=== PATIENT | female | born 1955 | race African-American/Black ===

== ENCOUNTER 2018-09-28 16:16 | Inpatient (IN) ==
--- NOTE | 2018-09-28 16:54 | Emergency Department Note ---
Disposition Clinical Impression: Weakness Fall Qualifiers: Encounter type: initial encounter Qualified Code(s): W19.XXXA - Unspecified fall, initial encounter CVA (cerebral vascular accident) Qualifiers: CVA mechanism: unspecified Qualified Code(s): I63.9 - Cerebral infarction, unspecified Disposition: Admitted As Inpatient Condition: Fair Referrals: NONE,PCP [Primary Care Provider] - Forms: ED Satisfaction Letter General Adult HPI - General Chief complaint: ED Headache Stated complaint: dizzy, headache Time Seen by Provider: 09/28/18 16:34 Nursing Notes Reviewed: Yes Vital Signs Reviewed: Yes - Related Data Allergies Allergy/AdvReac Type Severity Reaction Status Date / Time adhesive tape Allergy Rash Verified 09/28/18 16:57 ciprofloxacin [From Cipro] Allergy Hives Verified 09/28/18 16:57 levofloxacin [From Levaquin] Allergy Hives Verified 09/28/18 16:57 dial soap Allergy Rash Uncoded 09/28/18 16:57 IVP dye Allergy See Uncoded 09/28/18 16:57 Comments Course Vital Signs Temperature 99.3 F 09/28/18 16:28 Pulse Rate 107 09/28/18 16:28 Respiratory Rate 18 09/28/18 16:28 Blood Pressure 145/85 09/28/18 16:28 O2 Sat by Pulse Oximetry 98 09/28/18 16:28 Temperature 99.3 F 09/28/18 16:56 Pulse Rate 105 09/28/18 18:28 Respiratory Rate 16 09/28/18 18:28 Blood Pressure 111/67 09/28/18 18:28 O2 Sat by Pulse Oximetry 98 09/28/18 18:28 Oxygen Delivery Oxygen Delivery Room Air Medical Decision Making - [facility] Narrative Medical decision making narrative: 1821 hrs.: Waiting a patient's CAT scan. She has an elevated troponin. Denies any chest pain. She also has renal insufficiency with no old labs to compare to some uncertain if that is new or old. Once we get her CT is back and imaging will reassess her and most likely admit. Cervical Spine CT 09/28/18 16:43 IMPRESSION: Very limited examination, especially within the mid to lower cervical spine, with the examination is nearly nondiagnostic. No obvious acute fracture or traumatic malalignment is detected. D/ / Ravin Kruger MD / Ravin Kruger MD Interpreting Provider: Ravin Kruger MD Chest X-Ray 09/28/18 16:43 IMPRESSION: No acute process. D/ / Jace Yo MD / Jace Yo MD Interpreting Provider: Jace Yo MD Head CT 09/28/18 16:43 IMPRESSION: No acute intracranial abnormality. D/ / Jace Yo MD / Jace Yo MD Interpreting Provider: Jace Yo MD 1900 hrs.: Patient's CTs are back no acute process. Were going to go ahead and bring her into the hospital. With status post fall with left-sided weakness and diplopia. And then discuss her with hospitalist. She is in agreement with plan - Lab Data Result diagrams: 09/28/18 17:08 09/28/18 17:08 Lab Results 09/28/18 09/28/18 09/28/18 Range/Units 17:08 17:08 18:06 WBC 7.5 (4.3-11.1) K/mcL RBC 4.50 (3.82-4.97) M/mcL Hgb 12.6 (11.5-15.4) g/dL Hct 42.2 (35.3-44.9) % MCV 93.8 (83.0-100.0) fL MCH 28.0 (28.0-33.3) pg MCHC 29.9 L (31.6-35.5) g/dL RDW 14.6 H (11.5-14.5) % Plt Count 284 (140-400) K/mcL MPV 10.3 (9.4-12.4) fL Immature Gran % 0.4 (0-4) % Seg Neutrophils % 53.8 % Lymphocytes % 29.0 % Monocytes % 12.3 % Eosinophils % 4.0 % Basophils % 0.5 % Neutrophils # 4.0 (1.6-8.9) K/mcL Lymphocytes # 2.2 (0.6-4.6) K/mcL Monocytes # 0.9 (0.0-1.3) K/mcL Eosinophils # 0.3 (0.0-0.6) K/mcL Basophils # 0.0 (0.0-0.2) K/mcL Immature Plt Fraction 3.8 (1.1-6.1) % Sodium 137 (136-145) mEq/L Potassium 4.3 (3.5-5.1) mEq/L Chloride 100 (98-107) mEq/L Carbon Dioxide 31 H (23-29) mEq/L BUN 29 H (8-23) mg/dL Creatinine 1.37 H (0.60-1.20) mg/dL Est GFR ( Amer) 47 L (> 60) Est GFR (Non-Af Amer) 39 L (> 60) BUN/Creatinine Ratio 21 (6-26) Glucose 99 (70-105) mg/dL Calculated Osmolality 290 (280-300) Calcium 8.9 (8.6-10.3) mg/dL Total Bilirubin 0.5 (0.3-1.0) mg/dL AST 48 H (13-39) Units/L ALT 44 (7-52) Units/L Alkaline Phosphatase 119 H (34-104) Units/L Troponin I 0.06 H* (< 0.04) ng/mL Serum Total Protein 7.5 (6.4-8.9) g/dL Albumin 3.9 (3.5-5.7) g/dL Globulin 3.6 H (2.4-3.5) g/dL Albumin/Globulin Ratio 1.1 (1.1-2.2) Urine Color Yellow (Yellow) Urine Clarity Cloudy A (Clear) Urine pH 5.0 (5.0-8.0) pH Units Ur Specific [place] 1.017 (1.010-1.025) Urine Protein Negative (Neg-Trace) mg/dL Urine Glucose (UA) Normal (Normal) mg/dL Urine Ketones Negative (Negative) mg/dL Urine Blood Negative (Negative) Urine Nitrite Negative (Negative) Urine Bilirubin Small H (Negative) Urine Urobilinogen Normal (Normal) mg/dL Ur Leukocyte Esterase Small H (Negative) Urine Microscopic RBC 0-3 (0-3) per hpf Urine Microscopic WBC 5-15 H (0-3) per hpf Ur Squamous Epith Cells Many H (None-Few) per lpf Ur Transition Epith Cell Few (None-Few) per hpf Urine Bacteria None Seen (None-Few) per hpf Ur Culture Indicated? NO. A (NO) Attestation Statement - Attestation Attestation: This documentation is done with the assistance of Dragon dictation. Despite efforts made to ensure accuracy, there may be inaccuracies in railroad track inspector or spelling and typographical errors. I examined this patient and my medical decision-making was reviewed with the Resident Physician. I agree with the documented findings, disposition and treatment plan as described except to the extent set forth below. Patient seen and evaluated by Dr. mcmahan her and myself, I agree with her evaluation management plan, supervised the care the patient's stay. Patient presents today after Sunday she was walking up some stairs fell backwards and struck her head did not lose consciousness medics were there but then she did not want transported. She slept the last 3 days and today comes in with tingling in her face more right-sided droop and she normally has she says she said that since she was a kid double vision on the right eye and also weakness on the left upper extremity. She is contrast she says she has not had a stroke before she does walk with a cane. Were going to go ahead and get labs on her CT her. He wanted a CTA but she says she is allergic to IV dye. And then we will reassess. Most likely she will need admission.
[2018-09-28] MEDS: 0.9 % Sodium Chloride 1,000 ML IVC SCH (17:15)
[2018-09-28 17:25] LABS: Basophils % 0.5 %; Eosinophils # 0.3 K/mcL (0.0-0.6); Hematocrit 42.2 % (35.3-44.9); Hemoglobin 12.6 g/dL (11.5-15.4); Immature Granulocytes % 0.4 % (0-4); Immature Platelets 3.8 % (1.1-6.1); Lymphocytes # 2.2 K/mcL (0.6-4.6); Mean Corpuscular HGB Conc 29.9 g/dL (31.6-35.5); Mean Corpuscular Volume 93.8 fL (83.0-100.0); Mean Platelet Volume 10.3 fL (9.4-12.4); Monocytes # 0.9 K/mcL (0.0-1.3); Monocytes % 12.3 %; Platelet Count 284 K/mcL (140-400); Red Cell Distribution Width 14.6 % (11.5-14.5); Segmented Neutrophils % 53.8 %
--- NOTE | 2018-09-28 17:36 | Emergency Department Note ---
Disposition Clinical Impression: Weakness Fall Qualifiers: Encounter type: initial encounter Qualified Code(s): W19.XXXA - Unspecified fall, initial encounter CVA (cerebral vascular accident) Qualifiers: CVA mechanism: unspecified Qualified Code(s): I63.9 - Cerebral infarction, unspecified Disposition: Admitted As Inpatient Condition: Good Referrals: NONE,PCP [Primary Care Provider] - Forms: ED Satisfaction Letter General Adult HPI - General Chief complaint: ED Headache Stated complaint: dizzy, headache Time Seen by Provider: 09/28/18 16:34 Source: EMS Limitations: no limitations Nursing Notes Reviewed: Yes Vital Signs Reviewed: Yes - History of Present Illness HPI Narrative: 63-year-old female who presents the emergency department with complaints of left-sided weakness, predominantly of her left arm. She states this began yesterday after a fall. She states she fell and slipped backwards hitting her head but denies losing consciousness. Since that time she has slept significantly but has had numbness and weakness of her left upper extremity. She states she keeps dropping objects without trying. Otherwise notes that she has bilateral double vision, predominantly of the right eye. She complains of a headache. She otherwise denies any chest pain, shortness of breath, nausea, vomiting, diarrhea, abdominal pain, dysuria, hematuria. Pain Scale: 7 - Related Data Allergies Allergy/AdvReac Type Severity Reaction Status Date / Time adhesive tape Allergy Rash Verified 09/28/18 16:57 ciprofloxacin [From Cipro] Allergy Hives Verified 09/28/18 16:57 levofloxacin [From Levaquin] Allergy Hives Verified 09/28/18 16:57 dial soap Allergy Rash Uncoded 09/28/18 16:57 IVP dye Allergy See Uncoded 09/28/18 16:57 Comments Constitutional: Reports: weakness. Denies: fever, chills, weight change Eyes: Denies: eye pain, eye discharge Cardiovascular: Denies: chest pain, palpitations, dyspnea on exertion Respiratory: Denies: cough, dyspnea, wheezes, hemoptysis Gastrointestinal: Denies: abdominal pain, nausea, vomiting, diarrhea, constipation, hematemesis Genitourinary: Denies: urgency, dysuria Musculoskeletal: Denies: back pain, neck pain Integumentary: Denies: rash Neurological: Reports: headache, weakness. Denies: numbness, paresthesias, confusion Psychiatric: Denies: anxiety, depression Endocrine: Denies: fatigue Past Medical History - Past Medical History Medical history: Reports: hypertension Psychiatric history: Reports: no psych history - Social History Smoking Status: Current every day smoker Smokeless Tobacco Status: No Alcohol use: Reports: rarely Drug use: Reports: none Physical Exam - General Limitations: no limitations General appearance: alert, in no apparent distress - Head Head exam: atraumatic, normocephalic, other (Facial droop of the right which the) - Eye Eye exam: Present: normal appearance, PERRL, EOMI - ENT ENT exam: normal exam, normal oropharynx, mucous membranes moist - Neck Neck exam: Present: normal inspection, full ROM, trachea midline - Chest Chest inspection: Present: normal inspection, symmetric chest wall rise. Absent: tenderness - Respiratory Respiratory exam: Present: normal lung sounds bilaterally. Absent: respiratory distress, wheezes, stridor - Cardiovascular Cardiovascular exam: Present: normal rhythm, tachycardia, normal heart sounds - Abdominal Exam Abdominal exam: Present: soft, Non-Tender, normal bowel sounds. Absent: distention, guarding, rebound, rigidity - Extremities Exam Extremities exam: Present: normal inspection. Absent: pedal edema - Expanded Lower Extremity Exam Neurovascular/Tendon exam: Present: normal capillary refill - Back Exam Back exam: Present: normal inspection - Neurological Exam Neurological exam: Present: alert, oriented X3, CN II-XII intact - Expanded Neurological Exam Patient oriented to: Present: person, place, time Speech: Present: fluid speech Cranial nerves: EOM function (II, III, IV, ): Normal, facial sensation (V): Abnormal Left, Abnormal Right, facial palsy (VII): Normal, gag reflex (IX): Normal, spinal accessory function (XI): Normal, tongue deviation (XII): Normal Cerebellar function: finger to nose: Normal, heel to knutson: Normal Motor strength - LUE: 4/5 Motor strength - RUE: 5/5 Motor strength - LLE: 5/5 Motor strength - RLE: 5/5 Sensory exam upper extremity: light touch: Abnormal Left, Abnormal Right Sensory exam lower extremity: light touch: Abnormal Left, Abnormal Right Coma Scale Eye Opening: Spontaneous Coma Scale Motor Response: Obeys Commands Coma Scale Verbal Response: Oriented Coma Scale Total: 15 - Psychiatric Psychiatric exam: Present: normal affect, normal mood - Skin Skin exam: Present: warm, dry, intact Course Vital Signs Temperature 99.3 F 09/28/18 16:28 Pulse Rate 107 09/28/18 16:28 Respiratory Rate 18 09/28/18 16:28 Blood Pressure 145/85 09/28/18 16:28 O2 Sat by Pulse Oximetry 98 09/28/18 16:28 Temperature 99.3 F 09/28/18 16:56 Pulse Rate 105 09/28/18 18:28 Respiratory Rate 16 09/28/18 18:28 Blood Pressure 111/67 09/28/18 18:28 O2 Sat by Pulse Oximetry 98 09/28/18 18:28 Oxygen Delivery Oxygen Delivery Room Air Medical Decision Making - [facility]DM Narrative Medical decision making narrative: 63-year-old female presenting status post fall now with diplopia, headache and weakness of the left upper extremity. Given her symptoms obtained CBC, BMP, troponin, EKG, chest x-ray and CT head. Do believe this patient would benefit from CT angiogram head and neck but given her severe reaction to IV dye we are unable to obtain this. Troponin is elevated at 0.06 without EKG changes. Chest x-ray, CT head and neck were unremarkable. Discussed the findings with the patient and she agrees with plan for admission. Discussed the case with on-call hospitalist, Dr. Eaton who agrees with plan for admission. Patient agrees with and understands course of treatment plan including plan for admission. All questions answered. - Medical Records Medical records reviewed: Yes I reviewed the patient's medical records. - Lab Data Lab results reviewed: Yes I reviewed the patient's lab results. Result diagrams: 09/28/18 17:08 09/28/18 17:08 Lab Results 09/28/18 09/28/18 09/28/18 Range/Units 17:08 17:08 18:06 WBC 7.5 (4.3-11.1) K/mcL RBC 4.50 (3.82-4.97) M/mcL Hgb 12.6 (11.5-15.4) g/dL Hct 42.2 (35.3-44.9) % MCV 93.8 (83.0-100.0) fL MCH 28.0 (28.0-33.3) pg MCHC 29.9 L (31.6-35.5) g/dL RDW 14.6 H (11.5-14.5) % Plt Count 284 (140-400) K/mcL MPV 10.3 (9.4-12.4) fL Immature Gran % 0.4 (0-4) % Seg Neutrophils % 53.8 % Lymphocytes % 29.0 % Monocytes % 12.3 % Eosinophils % 4.0 % Basophils % 0.5 % Neutrophils # 4.0 (1.6-8.9) K/mcL Lymphocytes # 2.2 (0.6-4.6) K/mcL Monocytes # 0.9 (0.0-1.3) K/mcL Eosinophils # 0.3 (0.0-0.6) K/mcL Basophils # 0.0 (0.0-0.2) K/mcL Immature Plt Fraction 3.8 (1.1-6.1) % Sodium 137 (136-145) mEq/L Potassium 4.3 (3.5-5.1) mEq/L Chloride 100 (98-107) mEq/L Carbon Dioxide 31 H (23-29) mEq/L BUN 29 H (8-23) mg/dL Creatinine 1.37 H (0.60-1.20) mg/dL Est GFR ( Amer) 47 L (> 60) Est GFR (Non-Af Amer) 39 L (> 60) BUN/Creatinine Ratio 21 (6-26) Glucose 99 (70-105) mg/dL Calculated Osmolality 290 (280-300) Calcium 8.9 (8.6-10.3) mg/dL Total Bilirubin 0.5 (0.3-1.0) mg/dL AST 48 H (13-39) Units/L ALT 44 (7-52) Units/L Alkaline Phosphatase 119 H (34-104) Units/L Troponin I 0.06 H* (< 0.04) ng/mL Serum Total Protein 7.5 (6.4-8.9) g/dL Albumin 3.9 (3.5-5.7) g/dL Globulin 3.6 H (2.4-3.5) g/dL Albumin/Globulin Ratio 1.1 (1.1-2.2) Urine Color Yellow (Yellow) Urine Clarity Cloudy A (Clear) Urine pH 5.0 (5.0-8.0) pH Units Ur Specific [place] 1.017 (1.010-1.025) Urine Protein Negative (Neg-Trace) mg/dL Urine Glucose (UA) Normal (Normal) mg/dL Urine Ketones Negative (Negative) mg/dL Urine Blood Negative (Negative) Urine Nitrite Negative (Negative) Urine Bilirubin Small H (Negative) Urine Urobilinogen Normal (Normal) mg/dL Ur Leukocyte Esterase Small H (Negative) Urine Microscopic RBC 0-3 (0-3) per hpf Urine Microscopic WBC 5-15 H (0-3) per hpf Ur Squamous Epith Cells Many H (None-Few) per lpf Ur Transition Epith Cell Few (None-Few) per hpf Urine Bacteria None Seen (None-Few) per hpf Ur Culture Indicated? NO. A (NO) - Radiology Data Radiology results reviewed: Yes I reviewed the patient's radiology results. Cervical Spine CT 09/28/18 16:43 IMPRESSION: Very limited examination, especially within the mid to lower cervical spine, with the examination is nearly nondiagnostic. No obvious acute fracture or traumatic malalignment is detected. D/ / Ravin Kruger MD / Ravin Kruger MD Interpreting Provider: Ravin Kruger MD Chest X-Ray 09/28/18 16:43 IMPRESSION: No acute process. D/ / Jace Yo MD / Jace Yo MD Interpreting Provider: Jace Yo MD Head CT 09/28/18 16:43 IMPRESSION: No acute intracranial abnormality. D/ / Jace Yo MD / Jace Yo MD Interpreting Provider: Jace Yo MD - EKG Data EKG #1 EKG attestation: Yes I reviewed and interpreted this EKG. EKG results narrative: Sinus tachycardia rate of 104. LA 135, QRS 78, QTC 333, QTC 438. Normal axis. Inverted T waves in V1 and V3 and V4. No evidence of ST elevations. No prior for comparison.
[2018-09-28 17:49] LABS: Albumin 3.9 g/dL (3.5-5.7); Albumin/Globulin Ratio 1.1 (1.1-2.2); Bilirubin,Total 0.5 mg/dL (0.3-1.0); Calcium 8.9 mg/dL (8.6-10.3); Globulin 3.6 g/dL (2.4-3.5); Potassium 4.3 mEq/L (3.5-5.1); Total Protein 7.5 g/dL (6.4-8.9)
[2018-09-28 18:17] LABS: Bilirubin,Urine Small (Negative); Blood,Urine Negative (Negative); Clarity,Urine Cloudy (Clear); Color,Urine Yellow (Yellow); Glucose,Urine (UA) Normal (Normal); Ketones,Urine Negative (Negative); Leukocyte Esterase,Urine Small (Negative); Nitrite,Urine Negative (Negative); Protein,Urine Negative (Neg-Trace); Specific Gravity,Urine 1.017 (1.010-1.025); Urobilinogen,Urine Normal (Normal)
[2018-09-28 18:17] LABS: Troponin I 0.06 ng/mL (< 0.04)
[2018-09-28 18:19] LABS: Bacteria,Urine None Seen per hpf (None-Few); RBC,Urine 0-3 per hpf (0-3); Squamous Epithelial Cell,Urine Many per lpf (None-Few)
[2018-09-28 18:34] LABS: Transitional Epi Cells,Urine Few per hpf (None-Few)
[2018-09-28] MEDS ORDERED: Aspirin 81 MG TAB.CHEW PO STA (19:17)
--- NOTE | 2018-09-28 19:57 | Internal Med History&Physical ---
Date of Encounter: 09/28/18 Time of Encounter: 19:51 Internal Medicine - H&P: HPI Chief complaint: Left sided weakness History of present illness: Ms. Shen is a 63 year old female with a past medical history of hypertension, anxiety and smoking history who presents with left upper extremity weakness. Patient states she noted left upper extremity weakness around 4 AM Sunday morning when she began dropping things out of her left hand. Patient also has numbness and tingling in her left hand which is not acute. 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 Patient has had previous surgery on her right shoulder. She also notes feeling unsteady on her feet and drifting to one side. Patient had a mechanical fall 1 week prior at which time she fell forward while she was coming down some steps and struck her head on the pavement. Patient states she did not lose consciousness prior to the fall but does think that she was briefly unconscious after. She is not currently on any blood thinners. Patient reports a headache which began last Sunday and has been feeling unwell. She reportedly slept from Sunday until Sunday; she reports that her aid and daughter would occasionally wake her up but she will go back to sleep. Patient came in today because to be evaluated for her headache and left arm weakness. She states her headache started Sunday but is been on and off since then. Headache seems to have gotten progressively worse today. She has difficulty describing the pain but states that it starts in the back of her head and radiates upwards towards her scalp. She feels as if her head is going to pop off. Pain is throbbing. No associated pain along the temples. Seems to be aggravated by light and she did have one episode of nausea and vomiting. Patien t denies any previous history of migraine. Also reports double vision predominantly in the right eye. Denies any recent illness, shortness of breath, vomiting, diarrhea or abdominal pain. Labs relatively unremarkable aside from a mildly elevated creatinine and troponin of 0.06. Patient however denies any chest pain. CT scan of the cervical spine was limited but showed no obvious fracture. CT scan of the head was unremarkable. Patient was given loading dose of aspirin. Past Med Surg Social Fam HX - Past Medical History Medical history: hypertension Psychiatric history: no psych history - Past Surgical History Additional surgical history: gastric bypass - Social History Smoking Status: Current every day smoker Smokeless Tobacco Status: No Alcohol use: rarely Drug use: none Internal Medicine - H&P: Meds ALPRAZolam [Xanax 0.5 MG Tablet] 0.5 mg PO BID PRN 09/29/18 [History] Acetaminophen [Tylenol] 1,000 mg PO Q6HR 09/29/18 [History] Albuterol Sulfate [Ventolin Hfa] 2 puff IH Q6H PRN 09/29/18 [History] Amitriptyline [Elavil] 50 mg PO HS 09/29/18 [History] Budesonide/Formoterol 160/4.5 [Symbicort 160/4.5] 2 puff IH BIDR 09/29/18 [History] Duloxetine HCl [Cymbalta] 60 mg PO DAILY 09/29/18 [History] Gabapentin [Neurontin] 800 mg PO TID 09/29/18 [History] Ibuprofen [Ibu] 800 mg PO TID PRN 09/29/18 [History] Loperamide [Imodium] 4 mg PO AD PRN 09/29/18 [History] Ondansetron HCl [Zofran] 4 mg PO TID PRN 09/29/18 [History] Tizanidine HCl 4 mg PO QID PRN 09/29/18 [History] Allergy/AdvReac Type Severity Reaction Status Date / Time adhesive tape Allergy Rash Verified 09/28/18 16:57 ciprofloxacin [From Cipro] Allergy Hives Verified 09/28/18 16:57 levofloxacin [From Levaquin] Allergy Hives Verified 09/28/18 16:57 dial soap Allergy Rash Uncoded 09/28/18 16:57 IVP dye Allergy See Uncoded 09/28/18 16:57 Comments All Systems PM: A 10-system review of systems was performed and is negative for pertinent findings except as documented above in the HPI. - Constitutional Constitutional: no chills, no fever(s), no night sweats - EENT Eyes: no change in vision, no discharge, no pain, no photophobia Ears: no ear discharge, no ear pain, no tinnitus Nose, mouth and throat: no dysphagia, no nasal discharge, no neck pain, no sore throat - Cardiovascular Cardiovascular ROS IM: no chest pain, no diaphoresis, no dyspnea, no lightheadedness, no palpitations, no syncope - Respiratory Respiratory: no cough, no dyspnea, no wheezing, no excessive phlegm production - Gastrointestinal Gastrointestinal: no abdominal pain, no diarrhea, no hematemesis, no hematochezia, no melena, no nausea, no vomiting - Genitourinary Genitourinary: no change in urinary stream, no dysuria, no flank pain, no hematuria - Musculoskeletal Musculoskeletal ROS IM: no numbness, no tingling - Integumentary Integumentary IM: no rash, no unusual bruising - Neurological Neurological ROS: no confusion, no convulsions, no focal weakness, no numbness, no tingling, no tremor(s) - Hematologic/Lymphatic Hematologic/Lymphatic: no easy bruising - Constitutional Vitals: Temp Pulse Resp BP Pulse Ox 99.3 F 105 16 111/67 98 09/28/18 16:56 09/28/18 18:28 09/28/18 18:28 09/28/18 18:28 09/28/18 18:28 Exam: General: Alert and oriented 3 lying in bed in no acute distress Skin:Normal color, no rash, no lesions. HEENT:EOM, pupils equal, round and reactive. Cardiovascular:Normal S1 & S2, no rubs, murmurs or gallops. No JVD. Pulse regular. Lungs:Normal breath sounds, no wheezes or crackles. Abdomen:Soft, non-tender, no rigidity. Extremities:No deformity, no edema or tenderness, no joint swelling or clubbing. Pulses palpable Neurological:Normal cognition and motor skills. Cranial nerves II through XII intact. No evidence of pronator drift. No evidence of dysmetria. Upper extremity muscle strength 5 out of 5 bilaterally. Lower extremity: 4 out of 5 on the left, 5 out of 5 on the right. Sensation diminished on the left upper extremity compared to the right. Pulses:Carotid and radial pulses normal +2. Rest of the physical exam is non contributory Internal Med - H&P Results - Labs CBC & Chem 7: 09/28/18 17:08 09/29/18 05:08 Labs: Short CBC 09/28/18 Range/Units 17:08 WBC 7.5 (4.3-11.1) K/mcL Hgb 12.6 (11.5-15.4) g/dL Hct 42.2 (35.3-44.9) % Plt Count 284 (140-400) K/mcL Neutrophils # 4.0 (1.6-8.9) K/mcL BMP 09/28/18 17:08 Sodium 137 Potassium 4.3 Chloride 100 Carbon Dioxide 31 H BUN 29 H Creatinine 1.37 H Glucose 99 Calcium 8.9 Cardiac Enzymes 09/28/18 Range/Units 17:08 Troponin I 0.06 H* (< 0.04) ng/mL Liver Function 09/28/18 Range/Units 17:08 Total Bilirubin 0.5 (0.3-1.0) mg/dL AST 48 H (13-39) Units/L ALT 44 (7-52) Units/L Alkaline Phosphatase 119 H (34-104) Units/L Albumin 3.9 (3.5-5.7) g/dL Urine 09/28/18 Range/Units 18:06 Urine Color Yellow (Yellow) Urine Clarity Cloudy A (Clear) Urine pH 5.0 (5.0-8.0) pH Units Ur Specific [place] 1.017 (1.010-1.025) Urine Protein Negative (Neg-Trace) mg/dL Urine Glucose (UA) Normal (Normal) mg/dL - Impressions ITS Impressions Cervical Spine CT 09/28/18 16:43 IMPRESSION: Very limited examination, especially within the mid to lower cervical spine, with the examination is nearly nondiagnostic. No obvious acute fracture or traumatic malalignment is detected. D/ / Ravin Kruger MD / Ravin Kruger MD Interpreting Provider: Ravin Kruger MD Chest X-Ray 09/28/18 16:43 IMPRESSION: No acute process. D/ / Jace Yo MD / Jace Yo MD Interpreting Provider: Jace Yo MD Head CT 09/28/18 16:43 IMPRESSION: No acute intracranial abnormality. D/ / Jace Yo MD / Jace Yo MD Interpreting Provider: Jace Yo MD - Assessment and plan (1) Weakness Current Visit: Yes Status: Acute Assessment and plan: Patient reports left upper extremity weakness and dropping items from her hand which began 4 AM Sunday morning. She has a history of arthritis in the left shoulder with consultation with orthopedics for possible surgical intervention in the future. Patient reports numbness and tingling which has been ongoing off and on. Patient did have recent chemical fall with reported head trauma and loss of consciousness that was unwitnessed. Muscle strength on my assessment appears to be 5 out of 5 bilaterally. Sensation is diminished on the left upper extremity compared to the right. No other focal findings and patient appears to be neurologically intact otherwise. Low suspicion for CVA/TIA; suspect peripheral neuropathy such as carpal tunnel given patient's obesity and arthritis. Though patient does have risk factors including morbid obesity, hypertension and smoking history in addition to recent head trauma. We will admit for workup of TIA/CVA. Patient received loading dose of aspirin in the ED. -Neurochecks -Allow for any permissive hypertension -Echocardiogram/bilateral carotid duplex -MRI without contrast in the morning -Neurology consult (2) Headache Current Visit: Yes Status: Acute Assessment and plan: Patient reports throbbing headache originating in the back of the head and radi ating up to the scalp associated with nausea and photophobia. Suspect migraine. CT scan of the head was unremarkable. No temporal tenderness -By mouth pain control -We will obtain MRI of the head in the morning Qualifiers: Headache type: unspecified Headache chronicity pattern: chronic headache Intractability: not intractable Qualified Code(s): R51 - Headache (3) Diplopia Current Visit: Yes Status: Acute (4) Unsteady gait Current Visit: Yes Status: Acute Assessment and plan: Patient reports unsteady gait Sunday morning at 4 AM. Patient had been in bed almost 72 hours straight prior. No evidence of focal weakness on examination. Has history of arthritis. Suspect acute deconditioning. -PT/OT (5) Elevated troponin Current Visit: Yes Status: Acute Assessment and plan: Mildly elevated troponin of 0.06 on arrival. Patient denies any chest pain. EKG was unremarkable for any ischemic changes. Patient reports heart catheter in the past that was normal. Likely demand ischemia in the setting of recent events. -Trend troponin -Consider cardiology consult (6) Hypertension Current Visit: Yes Status: Acute Assessment and plan: Blood pressure stable. We will allow for permissive hypertension for now. Qualifiers: Hypertension type: essential hypertension Qualified Code(s): I10 - Essential (primary) hypertension (7) Smoking history Current Visit: Yes Status: Acute (8) DVT prophylaxis Current Visit: Yes Status: Acute Assessment and plan: Subcutaneous heparin - Time Spent With Patient Total time spent is greater than 50% in coordination of care (as documented) at patient's floor/unit and/or counseling patient:
[2018-09-28] MEDS ORDERED: Naloxone 0.4 MG/ML INJ IVP PRN (19:59)
[2018-09-28 20:38] LABS: Amphetamine Screen,Urine Negative ng/mL (Cutoff=1000); Barbiturate Screen,Urine Negative ng/mL (Cutoff=200); Benzodiazepines Screen,Urine Negative ng/mL (Cutoff=200); Cannabinoid Screen,Urine Negative ng/mL (Cutoff = 50); Cocaine Screen,Urine Negative ng/mL (Cutoff= 300); Opiate Screen,Urine Negative ng/mL (Cutoff=300); Phencyclidine Screen,Urine Negative ng/mL (Cutoff=25)
[2018-09-28] MEDS: *HR* Heparin 5,000 UNIT/ML VIAL SQ SCH (22:12)
[2018-09-29] MEDS: Acetaminophen/Aspirin/Caffeine TABLET PO PRN ×2 (00:40→13:06)
[2018-09-29] MEDS ORDERED: OXYCODONE Oral CONC 10 MG/0.5 ML ORAL.SYG SL ONE ×3 (02:28→08:24)
[2018-09-29] MEDS: 0.9 % Sodium Chloride 1,000 ML IVC SCH (05:19)
[2018-09-29] MEDS: *HR* Heparin 5,000 UNIT/ML VIAL SQ SCH ×3 (05:20→21:05)
[2018-09-29 05:49] LABS: Prothrombin Time 11.6 Seconds (9.4-12.1)
[2018-09-29 06:06] LABS: Alanine Aminotransferase 40 Units/L (7-52); Albumin 3.6 g/dL (3.5-5.7); Albumin/Globulin Ratio 1.1 (1.1-2.2); Alkaline Phosphatase 114 Units/L (34-104); Aspartate Amino Transferase 47 Units/L (13-39); BUN/Creatinine Ratio 28 (6-26); Bilirubin,Total 0.6 mg/dL (0.3-1.0); Blood Urea Nitrogen 23 mg/dL (8-23); Calcium 8.5 mg/dL (8.6-10.3); Carbon Dioxide 29 mEq/L (23-29); Chloride 105 mEq/L (98-107); Chol/HDL Ratio 2.7 (0-4.9); Cholesterol 127 mg/dL (< 200); Globulin 3.4 g/dL (2.4-3.5); Glucose 108 mg/dL (70-105); HDL Cholesterol 47 mg/dL (40-59); LDL Cholesterol,Calculated 66 mg/dL (0-99); Osmolality,Calculated 294 (280-300); Potassium 4.3 mEq/L (3.5-5.1); Sodium 140 mEq/L (136-145); Triglycerides 69 mg/dL (< 150); eGFR For Non-African Americans > 60 (> 60)
[2018-09-29 06:07] LABS: Estimated Average Glucose 108 mg/dl; Hemoglobin A1C 5.4 %
[2018-09-29] MEDS ORDERED: Perflutren Lipid Microsphere 1.3 ML in 0.9 % Sodium Chloride 8.7 ML IVP ONE (10:51)
--- NOTE | 2018-09-29 11:33 | Neurology - Consult Note ---
Date of Encounter: 09/29/18 Time of Encounter: 11:26 Assessment and Plan (1) CVA (cerebral vascular accident) Current Visit: Yes Status: Acute Working diagnosis would be CVA, could be related to posterior circulation due to presence of dizziness, balance difficulty, ataxia, and left hand subtle weakness. I did not appreciate Avelina syndrome though. Agree with stroke work as ordered by primary medical team, agree with aspirin as antiplatelet therapy. She does not appear to be myelopathic. other possible considerations would include CTS to the left side, which at times can not motor weakness. noted that she also has left shoulder problems which can contribute to her symptoms. However, the presence of dizziness and ataxia would be difficult to explain with a left shoulder problem or CTS. Lipid profile within desired range Qualifiers: CVA mechanism: unspecified Qualified Code(s): I63.9 - Cerebral infarction, unspecified (2) Headache Current Visit: Yes Status: Acute headache with some allodynia, not significant autonomic symptoms and no nuchal rigidity. No evidence of ASSISTANT IMPORT MANAGER infection. Does have chronic back pain and history of chronic exposure to opiates in the past. There could be a component of occipital neuralgia. Treatment is largely symptomatic, agree with the regimen as for now. if not helping then short course IV steroid may be considered. Qualifiers: Headache type: unspecified Headache chronicity pattern: chronic headache Intractability: not intractable Qualified Code(s): R51 - Headache History of Present Illness Chief complaint: left arm weakness and dizziness HPI: Ms. Shen is a 63 year old female with PMH significant for morbid obesity, lumbar DDD, bilateral hip pain, who developed acute onset of dizziness and dropping things from left hand. This states that the symptoms started rather acutely one day prior to admission. She describes dizziness feeling, a feeling that she can not control her balance and when she walked she leaned to the left side. She kept dropping things to the left side. She also complains of having a headache, located at her forehead and referring to the back of her head. She denies nausea, no double vision, no difficulty speaking or swallowing. She was admitted for stroke work up. She is given aspirin. CT of head showed no acute intracranial abnormality. At the time of this interview, she is quite stable and has normal speech but admits that she still has a headache. hand communications senior associate are equally, no significant sensory deficits. Patient does have some left shoulder orthopedic conditions that causes shoulder pain. She has had right shoulder replacement in the past also Past Med Surg Social Fam HX - Past Medical History Medical history: hypertension Psychiatric history: no psych history - Past Surgical History Surgical History: appendectomy, cholecystectomy Additional surgical history: gastric bypass - Social History Smoking Status: Current every day smoker Packs per day: 0.33 Smokeless Tobacco Status: No Alcohol use: rarely Drug use: none Medications and Allergies Allergy/AdvReac Type Severity Reaction Status Date / Time adhesive tape Allergy Rash Verified 09/28/18 16:57 ciprofloxacin [From Cipro] Allergy Hives Verified 09/28/18 16:57 levofloxacin [From Levaquin] Allergy Hives Verified 09/28/18 16:57 dial soap Allergy Rash Uncoded 09/28/18 16:57 IVP dye Allergy See Uncoded 09/28/18 16:57 Comments All Systems: The remainder of the systems were reviewed and are negative Physical Examination - Vital Signs Vital Signs: Initial Vital Signs Temp Pulse Resp BP Pulse Ox 99.3 F 107 18 145/85 98 09/28/18 16:28 09/28/18 16:28 09/28/18 16:28 09/28/18 16:28 09/28/18 16:28 - Constitutional General appearance: comfortable - Neurologic Sensorimotor examination: intact Detailed motor examination: full strength in all major muscle groups Motor examination - right side: 5/5: deltoids, biceps, triceps, wrist flexion, wrist extension, ssrs developer, hip flexors, tibialis Anterior, quadriceps, toe extension (EHL), plantarflexion Motor examination - left side: 5/5: deltoids, biceps, triceps, wrist flexion, wrist extension, hip flexors, ssrs developer, quadriceps, tibialis Anterior, toe extension (EHL), plantarflexion Detailed sensory examination: intact Posture: other (None) Reflexes: Biceps: 1+, Triceps: 1+, Brachioradialis: 1+, Patella: 1+, Achilles: 1+ Mental Status Examination: awake, alert, oriented to person, oriented to place, oriented to time, follows commands appropriately, answers questions appropriately, no agnosia, no aphasia, no aproxia Cranial nerve examination: PERRL, EOMI, visual pires intact, corneal reflexes brisk symmetrically, sensory to face intact, mastication intact, no facial a symmetry is present, no dysarthria, hearing is intact symmetrically, soft palate elevates bilaterally upon phonation, gag reflex intact, flexes SCM and trapezius muscles symmetrically with full power, tongue protrudes midline, no atrophy or facial fasiculations present Cerebellar examination: no dysmetria, performs finger to nose and heel to [place] symmetrically without ataxia, no gait ataxia (Gait not assessed), no truncal ataxia (Gait not assessed), no difficulty with rapid alternating movements Results - Laboratory Findings CBC and BMP: 09/28/18 17:08 09/29/18 05:08 Abnormal lab findings: Abnormal lab results MCHC 29.9 g/dL (31.6-35.5) L 09/28/18 17:08 RDW 14.6 % (11.5-14.5) H 09/28/18 17:08 BUN/Creatinine Ratio 28 (6-26) H 09/29/18 05:08 Glucose 108 mg/dL (70-105) H 09/29/18 05:08 Calcium 8.5 mg/dL (8.6-10.3) L 09/29/18 05:08 AST 47 Units/L (13-39) H 09/29/18 05:08 Alkaline Phosphatase 114 Units/L (34-104) H 09/29/18 05:08 Urine Clarity Cloudy (Clear) A 09/28/18 18:06 Urine Bilirubin Small (Negative) H 09/28/18 18:06 Ur Leukocyte Esterase Small (Negative) H 09/28/18 18:06 Urine Microscopic WBC 5-15 per hpf (0-3) H 09/28/18 18:06 Ur Squamous Epith Cells Many per lpf (None-Few) H 09/28/18 18:06 Ur Culture Indicated? NO. (NO) A 09/28/18 18:06 Consult Discharge Plan - Plan Referrals: NONE,PCP [Primary Care Provider] -
--- NOTE | 2018-09-29 14:32 | Internal Med Progress Note ---
Hospitalist Progress Note - Encounter Date of Encounter: 09/29/18 Time of Encounter: 14:28 - Subjective Interval History: Patient seen and examined at bedside. Patient states that overall she feels much better. She states her weakness has resolved. She does state that she still feels somewhat dizzy but overall this is improved. She also reports cont inued mild headache that this is improved with pain medication. Denies chest pain, shortness of breath, fever, chills. - Exam Vitals: Temp Pulse Resp BP Pulse Ox 98.7 F 95 18 121/80 94 09/29/18 04:44 09/29/18 11:46 09/29/18 11:46 09/29/18 11:46 09/29/18 11:46 Exam: Gen.: Alert and oriented 3, no acute distress HEENT: Mucous membranes moist with no lesions noted Heart: Regular rate and rhythm, no murmurs, rubs, gallops Lungs: Clear to auscultation bilaterally, no rales, rhonchi, wheezes. Abdomen: Soft, nontender, nondistended. Normoactive bowel sounds. Extremities: No clubbing, cyanosis, or edema noted Skin: Slightly cool to touch of the lower extremities, however equal bilaterally. No new rashes or lesions noted. Neuro: Strength 5 out of 5 in the upper extremities bilaterally, sensation intac t. Cranial nerves II through XII grossly intact. No focal deficits. Alert and oriented 3 and able to answer questions appropriately. - Assessment and Plan (1) Weakness Current Visit: Yes Status: Acute Assessment and Plan: Etiology unclear, possible TIA. Upper extremity weakness has resolved however patient does feel somewhat dizzy and unsteady. Neurology saw the patient, reviewed their note, differential include CVA/TIA. MRI pending, echo unremarkable. Carotid duplex pending. Patient is currently receiving aspirin in her headache medication so we will continue to make sure she receives aspirin for antiplatelet therapy. (2) Hypertension Current Visit: Yes Status: Acute Assessment and Plan: Blood pressure mildly elevated on presentation, has normalized. Patient does not take any home antihypertensive. We will continue to monitor and start as needed. (3) Headache Current Visit: Yes Status: Acute Assessment and Plan: Appears improved. Chronic in nature for this patient. No fevers or nuchal rigidity noted. Continue oral pain control. MRI pending. (4) Smoking history Current Visit: Yes Status: Acute (5) Unsteady gait Current Visit: Yes Status: Acute Assessment and Plan: Etiology unclear, possibly due to posterior circulation CVA. MRI pending, PT OT consult pending. Get patient up out of bed with assist. (6) Elevated troponin Current Visit: Yes Status: Acute Assessment and Plan: Troponin but has normalized, no chest pain. Continue monitor for chest pain. (7) DVT prophylaxis Current Visit: Yes Status: Acute Assessment and Plan: Subcutaneous heparin - Time Spent with Patient Total time spent is greater than 50% in coordination of care (as documented) at patient's floor/unit and/or counseling patient: less than 15 minutes Plan of Care Discussed with: patient Internal Medicine: Result - Labs CBC & Chem 7: 09/28/18 17:08 09/29/18 05:08 Labs: Short CBC 09/28/18 Range/Units 17:08 WBC 7.5 (4.3-11.1) K/mcL Hgb 12.6 (11.5-15.4) g/dL Hct 42.2 (35.3-44.9) % Plt Count 284 (140-400) K/mcL Neutrophils # 4.0 (1.6-8.9) K/mcL BMP 09/28/18 09/29/18 17:08 05:08 Sodium 137 140 Potassium 4.3 4.3 Chloride 100 105 Carbon Dioxide 31 H 29 BUN 29 H 23 Creatinine 1.37 H 0.82 Glucose 99 108 H Calcium 8.9 8.5 L Cardiac Enzymes 09/28/18 09/28/18 09/29/18 Range/Units 17:08 22:36 05:08 Troponin I 0.06 H* 0.04 H* 0.03 (< 0.04) ng/mL Liver Function 09/28/18 09/29/18 Range/Units 17:08 05:08 Total Bilirubin 0.5 0.6 (0.3-1.0) mg/dL AST 48 H 47 H (13-39) Units/L ALT 44 40 (7-52) Units/L Alkaline Phosphatase 119 H 114 H (34-104) Units/L Albumin 3.9 3.6 (3.5-5.7) g/dL Urine 09/28/18 Range/Units 18:06 Urine Color Yellow (Yellow) Urine Clarity Cloudy A (Clear) Urine pH 5.0 (5.0-8.0) pH Units Ur Specific [place] 1.017 (1.010-1.025) Urine Protein Negative (Neg-Trace) mg/dL Urine Glucose (UA) Normal (Normal) mg/dL - ABG Interpretation ABG results: PT/INR, D-dimer PT 11.6 Seconds (9.4-12.1) 09/29/18 05:08 - Impressions Impressions Cervical Spine CT 09/28/18 16:43 IMPRESSION: Very limited examination, especially within the mid to lower cervical spine, with the examination is nearly nondiagnostic. No obvious acute fracture or traumatic malalignment is detected. D/ / Ravin Kruger MD / Ravin Kruger MD Interpreting Provider: Ravin Kruger MD Chest X-Ray 09/28/18 16:43 IMPRESSION: No acute process. D/ / Jace Yo MD / Jace Yo MD Interpreting Provider: Jace Yo MD Head CT 09/28/18 16:43 IMPRESSION: No acute intracranial abnormality. D/ / Jace Yo MD / Jace oY MD Interpreting Provider: Jace Yo MD Echocardiogram 09/29/18 05:00 Impressions: Technically challenging due to body habitus. LVEF 65%. Mild left ventricular diastolic dysfunction. Definity echo contrast was used. RV is not optimally visualized. Mild tricuspid regurgitation. Mild pulmonary hypertension by TR gradient. Image quality suboptimal to detect PFO with saline contrast. Left Ventricular Wall Motion: Rest Echo Findings All wall segments showed normal motion. Findings: Study Quality * Technically challenging due to body habitus. ECG Findings * Normal sinus rhythm. Left Ventricle * LVEF 65%. * Normal LV chamber size, wall thickness and function. * Mild left ventricular diastolic dysfunction. * Definity echo contrast was used. Right Ventricle * RV is not optimally visualized. Left Atrium * Moderately dilated left atrium. Right Atrium * Right atrium is not well visualized. Aortic Valve * No aortic regurgitation. * Aortic valve not well visualized. * No aortic stenosis. Mitral Valve * No mitral regurgitation. * Mitral valve not well visualized. * No mitral stenosis. Tricuspid Valve * Tricuspid valve not well visualized. * Mild tricuspid regurgitation. Pulmonic Valve * Pulmonic valve is not well visualized. * No pulmonic stenosis. * No pulmonic regurgitation. Pulmonary Artery * Pulmonary artery not well visualized. Aorta * Normally sized aortic root. Pericardium * There is no pericardial effusion present. Interatrial Septum * Interatrial septum not well evaluated. * Image quality suboptimal to detect PFO with saline contrast. IVC * The IVC is not well evaluated. Consult Discharge Plan - Plan Referrals: NONE,PCP [Primary Care Provider] - ___ (2) Hypertension Qualifiers: Hypertension type: essential hypertension Qualified Code(s): I10 - Essential (primary) hypertension (3) Headache Qualifiers: Headache type: unspecified Headache chronicity pattern: chronic headache Intractability: not intractable Qualified Code(s): R51 - Headache
[2018-09-29] MEDS ORDERED: tiZANidine 4 MG TABLET PO PRN (14:35)
[2018-09-29] MEDS ORDERED: Ondansetron ODT 4 MG TAB.RAPDIS PO PRN (14:35)
[2018-09-29] MEDS: Gabapentin 400 MG CAPSULE PO SCH (15:39)
[2018-09-29] MEDS: ALPRAZolam 0.5 MG TABLET PO PRN (15:39)
[2018-09-29] MEDS ORDERED: Ketorolac 30 MG/ML VIAL IVP ONE (15:39)
[2018-09-30] MEDS: Gabapentin 400 MG CAPSULE PO SCH ×4 (00:07→21:28)
[2018-09-30] MEDS: Acetaminophen/Aspirin/Caffeine TABLET PO PRN ×2 (01:05→07:29)
[2018-09-30] MEDS: *HR* Heparin 5,000 UNIT/ML VIAL SQ SCH ×3 (05:05→21:28)
[2018-09-30 07:05] LABS: Basophils % 0.5 %; Eosinophils # 0.3 K/mcL (0.0-0.6); Eosinophils % 5.6 %; Hematocrit 38.2 % (35.3-44.9); Hemoglobin 11.3 g/dL (11.5-15.4); Lymphocytes % 33.1 %; Mean Corpuscular HGB Conc 29.6 g/dL (31.6-35.5); Mean Corpuscular Hemoglobin 27.5 pg (28.0-33.3); Mean Corpuscular Volume 92.9 fL (83.0-100.0); Mean Platelet Volume 10.3 fL (9.4-12.4); Monocytes # 0.8 K/mcL (0.0-1.3); Monocytes % 13.2 %; Neutrophils # 2.9 K/mcL (1.6-8.9); Platelet Count 249 K/mcL (140-400); Red Blood Count 4.11 M/mcL (3.82-4.97); Red Cell Distribution Width 14.4 % (11.5-14.5); Segmented Neutrophils % 47.6 %
[2018-09-30 07:25] LABS: BUN/Creatinine Ratio 33 (6-26); Blood Urea Nitrogen 16 mg/dL (8-23); Calcium 8.6 mg/dL (8.6-10.3); Carbon Dioxide 34 mEq/L (23-29); Chloride 105 mEq/L (98-107); Glucose 85 mg/dL (70-105); Osmolality,Calculated 288 (280-300); Potassium 4.6 mEq/L (3.5-5.1); Sodium 139 mEq/L (136-145); eGFR For Non-African Americans > 60 (> 60)
[2018-09-30] MEDS: ALPRAZolam 0.5 MG TABLET PO PRN ×2 (08:12→23:51)
--- NOTE | 2018-09-30 12:52 | Internal Med Progress Note ---
Hospitalist Progress Note - Encounter Date of Encounter: 09/30/18 Time of Encounter: 12:51 - Subjective Interval History: Patient seen and examined at bedside. Patient states that overall she feels much better. She states her weakness has resolved. She does state that she still feels somewhat dizzy but overall this is improved. She also reports cont inued mild headache that this is improved with pain medication. Denies chest pain, shortness of breath, fever, chills. - Exam Vitals: Temp Pulse Resp BP Pulse Ox 98.0 F 96 16 153/82 95 09/30/18 08:11 09/30/18 08:11 09/30/18 08:11 09/30/18 08:11 09/30/18 08:11 Exam: Gen.: Alert and oriented 3, no acute distress HEENT: Mucous membranes moist, no oral lesions Lungs clear to auscultation bilaterally, no rales, rhonchi, wheezes Heart: Regular rate and rhythm, no murmurs, rubs, gallops Abdomen: Soft, nontender, nondistended. Normoactive bowel sounds Neuro: Cranial nerves II-12 intact, no focal deficits, sensation intact. - Assessment and Plan (1) Weakness Current Visit: Yes Status: Acute Assessment and Plan: MRI does not reveal any sign of CVA however was limited by motion artifact. Possibly due to peripheral neuropathy or radiculopathy symptoms. Neurology is following and will await their recommendations. Have encouraged patient to work with PT and OT today. (2) Diplopia Current Visit: Yes Status: Resolved Assessment and Plan: Resolved. (3) Hypertension Current Visit: Yes Status: Acute Assessment and Plan: Blood pressure has mostly been normal with a few elevated readings. Was not on hypertensive medications prior to arrival. We will hold off on initiating and have the patient follow up with her PCP. (4) Headache Current Visit: Yes Status: Acute Assessment and Plan: Patient reports continued headache that is relieved with Toradol. As her renal function is normalized we will continue with Toradol when necessary. (5) Unsteady gait Current Visit: Yes Status: Acute Assessment and Plan: Overall patient states that she feels better. States she has been up out of bed earlier today. Awaiting PT/OT evaluation. (6) Acute renal failure Current Visit: Yes Status: Resolved Assessment and Plan: Creatinine 1.37 on admission, 0.48 today. Likely due to dehydration. Resolved. Continue to monitor. (7) DVT prophylaxis Current Visit: Yes Status: Acute Assessment and Plan: Heparin 5000 units subcutaneous every 8 hours. - Time Spent with Patient Total time spent is greater than 50% in coordination of care (as documented) at patient's floor/unit and/or counseling patient: Internal Medicine: Result - Labs CBC & Chem 7: 09/30/18 06:44 09/30/18 06:44 Labs: Short CBC 09/30/18 Range/Units 06:44 WBC 6.1 (4.3-11.1) K/mcL Hgb 11.3 L (11.5-15.4) g/dL Hct 38.2 (35.3-44.9) % Plt Count 249 (140-400) K/mcL Neutrophils # 2.9 (1.6-8.9) K/mcL BMP 09/30/18 06:44 Sodium 139 Potassium 4.6 Chloride 105 Carbon Dioxide 34 H BUN 16 Creatinine 0.48 L Glucose 85 Calcium 8.6 - ABG Interpretation ABG results: PT/INR, D-dimer PT 11.6 Seconds (9.4-12.1) 09/29/18 05:08 - Impressions Impressions Echocardiogram 09/29/18 05:00 Impressions: Technically challenging due to body habitus. LVEF 65%. Mild left ventricular diastolic dysfunction. Definity echo contrast was used. RV is not optimally visualized. Mild tricuspid regurgitation. Mild pulmonary hypertension by TR gradient. Image quality suboptimal to detect PFO with saline contrast. Left Ventricular Wall Motion: Rest Echo Findings All wall segments showed normal motion. Findings: Study Quality * Technically challenging due to body habitus. ECG Findings * Normal sinus rhythm. Left Ventricle * LVEF 65%. * Normal LV chamber size, wall thickness and function. * Mild left ventricular diastolic dysfunction. * Definity echo contrast was used. Right Ventricle * RV is not optimally visualized. Left Atrium * Moderately dilated left atrium. Right Atrium * Right atrium is not well visualized. Aortic Valve * No aortic regurgitation. * Aortic valve not well visualized. * No aortic stenosis. Mitral Valve * No mitral regurgitation. * Mitral valve not well visualized. * No mitral stenosis. Tricuspid Valve * Tricuspid valve not well visualized. * Mild tricuspid regurgitation. Pulmonic Valve * Pulmonic valve is not well visualized. * No pulmonic stenosis. * No pulmonic regurgitation. Pulmonary Artery * Pulmonary artery not well visualized. Aorta * Normally sized aortic root. Pericardium * There is no pericardial effusion present. Interatrial Septum * Interatrial septum not well evaluated. * Image quality suboptimal to detect PFO with saline contrast. IVC * The IVC is not well evaluated. Brain MRI 09/30/18 08:40 IMPRESSION: Limited exam due to patient motion without acute intracranial process identified. D/ / Zion Crocker MD / Zion Crocker MD Interpreting Provider: Zion Crocker MD Consult Discharge Plan - Plan Referrals: NONE,PCP [Primary Care Provider] - (3) Hypertension Qualifiers: Hypertension type: essential hypertension Qualified Code(s): I10 - Essential (primary) hypertension (4) Headache Qualifiers: Headache type: unspecified Headache chronicity pattern: chronic headache Intractability: not intractable Qualified Code(s): R51 - Headache (6) Acute renal failure Qualifiers: Acute renal failure type: unspecified Qualified Code(s): N17.9 - Acute kidney failure, unspecified
[2018-09-30] MEDS: Aspirin Enteric Coated 81 MG Tablet PO SCH (13:17)
[2018-09-30] MEDS: Ketorolac 15 MG/ML VIAL IVP PRN ×2 (13:18→19:32)
--- NOTE | 2018-09-30 14:59 | Electrocardiograph Report ---
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
--- NOTE | 2018-09-30 16:01 | Neurology Progress Note ---
Date of Encounter: 09/30/18 Time of Encounter: 15:59 Assessment and Plan (1) CVA (cerebral vascular accident) Current Visit: Yes Status: Acute No evidence of CVA per MRI of brain, stroke work up completed. Carotid artery duplex showed atypical flow at the left ICA and recommended 6 months follow up. Clinically, i did not appreciate any focal left hand weakness at present time. She still has some reduced ROM to the left shoulder problems. She does not appear to be myelopathic. May benefit from outpatient EMG/NCV to assess possible cervical radiculopathy, or carpal tunnel syndrome. She is to follow up with ortho regarding her left shoulder problems. Qualifiers: CVA mechanism: unspecified Qualified Code(s): I63.9 - Cerebral infarction, unspecified (2) Headache Current Visit: Yes Status: Acute Improved as her medical conditions improve. Seem that symptomatic treatment has been helping. Will avoid regular use of narcotic pain meds though. Treatment largely symptomatic. Please continue medical and supportive care Qualifiers: Headache type: unspecified Headache chronicity pattern: chronic headache Intractability: not intractable Qualified Code(s): R51 - Headache Subjective Principal diagnosis: left arm weakness and headaches Interval history: Patient seen and examined. She is doing better and the headaches are less severe. Mental status appears intact. No objective hand/arm weakness though. Has some baseline left shoulder pain and is currently being evaluation by ortho. NO speech difficulty Objective - Constitutional Vitals: Temp Pulse Resp BP Pulse Ox 98.0 F 96 16 153/82 95 09/30/18 08:11 09/30/18 08:11 09/30/18 08:11 09/30/18 08:11 09/30/18 08:11 - Neurological Exam Sensorimotor examination: Present: intact Motor Examination: Present: full strength in all major muscle groups Motor examination - right side: 5/5: deltoids, biceps, triceps, wrist flexion, wrist extension, meat packer, hip flexors, tibialis Anterior, quadriceps, toe extension (EHL), plantarflexion Motor examination - left side: 5/5: deltoids, biceps, triceps, wrist flexion, wrist extension, hip flexors, meat packer, quadriceps, tibialis Anterior, toe extension (EHL), plantarflexion Sensation intact: Present: intact Posture: Present: other (None) Reflexes: Biceps: 1+, Triceps: 1+, Brachioradialis: 1+, Patella: 1+, Achilles: 1+ Mental Status Examination: Present: awake, alert, oriented to person, oriented to place, oriented to time, follows commands appropriately, answers questions appropriately, no agnosia, no aphasia, no aproxia Cranial nerve examination: Present: PERRL, EOMI, visual pires intact, corneal reflexes brisk symmetrically, sensory to face intact, mastication intact, no facial asymmetry is present (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), no dysarthria, hearing is intact symmetrically, soft palate elevates bilaterally upon phonation, gag reflex intact, flexes SCM and trapezius muscles symmetrically with full power, tongue protrudes midline, no atrophy or facial fasiculations present Cerebellar examination: Present: no dysmetria, performs finger to nose and heel to knutson symmetrically without ataxia, no gait ataxia (Gait not assessed), no truncal ataxia (Gait not assessed), no difficulty with rapid alternating movements Results - Laboratory Findings CBC and BMP: 09/30/18 06:44 09/30/18 06:44 Abnormal lab findings: Abnormal lab results Hgb 11.3 g/dL (11.5-15.4) L 09/30/18 06:44 MCH 27.5 pg (28.0-33.3) L 09/30/18 06:44 MCHC 29.6 g/dL (31.6-35.5) L 09/30/18 06:44 Carbon Dioxide 34 mEq/L (23-29) H 09/30/18 06:44 Creatinine 0.48 mg/dL (0.60-1.20) L 09/30/18 06:44 BUN/Creatinine Ratio 33 (6-26) H 09/30/18 06:44 AST 47 Units/L (13-39) H 09/29/18 05:08 Alkaline Phosphatase 114 Units/L (34-104) H 09/29/18 05:08 Urine Clarity Cloudy (Clear) A 09/28/18 18:06 Urine Bilirubin Small (Negative) H 09/28/18 18:06 Ur Leukocyte Esterase Small (Negative) H 09/28/18 18:06 Urine Microscopic WBC 5-15 per hpf (0-3) H 09/28/18 18:06 Ur Squamous Epith Cells Many per lpf (None-Few) H 09/28/18 18:06 Ur Culture Indicated? NO. (NO) A 09/28/18 18:06 - Diagnostic Findings Additional findings: Impressions: Findings: Right carotid system is essentially normal. Findings: Left proximal ICA and mid ICA demonstrate atypical flow. Recommendations: Suggest clinical correlation and Follow up exam 6 months. Findings Carotid Duplex: Right: The right proximal common carotid artery has a PSV of 85 cm/s and a EDV of 27 cm/s. The right mid common carotid artery has a PSV of 89 cm/s and a EDV of 33 cm/s. The right distal common carotid artery has a PSV of 82 cm/s and a EDV of 29 cm/s. The right bifurcation has a PSV of 71 cm/s and a EDV of 31 cm/s. The right proximal internal carotid artery has a PSV of 90 cm/s and a EDV of 34 cm/s. The right mid internal carotid artery has a PSV of 97 cm/s and a EDV of 47 cm/s. The right distal internal carotid artery has a PSV of 92 cm/s and a EDV of 42 cm/s. The right eca has a PSV of 61 cm/s and a EDV of 19 cm/s. Left: The left proximal common carotid artery has a PSV of 112 cm/s and a EDV of 30 cm/s. The left mid common carotid artery has a PSV of 87 cm/s and a EDV of 28 cm/s. The left distal common carotid artery has a PSV of 96 cm/s and a EDV of 31 cm/s. The left bifurcation has a PSV of 72 cm/s and a EDV of 18 cm/s. There is 60-79% stenosis in the left proximal internal carotid artery with a PSV of 142 cm/s and a EDV of 70 cm/s. There is smooth heterogeneous plaque. There is 60-79% stenosis in the left mid internal carotid artery with a PSV of 146 cm/s and a EDV of 66 cm/s. There is smooth heterogeneous plaque. The left distal internal carotid artery has a PSV of 119 cm/s and a EDV of 59 cm/s. The left eca has a PSV of 66 cm/s and a EDV of 16 cm/s. The left vertebral artery has a PSV of 88 cm/s and a EDV of 36 cm/s. Prior Study: No prior study available for comparison. Suggest clinical correlation and Follow up exam 6 months. Carotid Results Right PSV EDV Assessment Proximal CCA 85 27 Normal Mid CCA 89 33 Normal Distal CCA 82 29 Normal Bifurcation 71 31 Normal Proximal ICA 90 34 Normal Mid ICA 97 47 Normal Distal ICA 92 42 Normal ECA 61 19 Normal Left PSV EDV Assessment Proximal CCA 112 30 Normal Mid CCA 87 28 Normal Distal CCA 96 31 Normal Bifurcation 72 18 Normal Proximal ICA 142 70 Atypical flow Mid ICA 146 66 Atypical flow Distal ICA 119 59 Normal ECA 66 16 Normal Vertebral Artery 88 36 Normal Ratio's Right ICA/CCA Ratio: 1.08 ICA/CCA Values: 97/89 Left ICA/CCA Ratio: 1.68 ICA/CCA Values: 146/87 Updated by Mansoor Baltazar MD, FACS on 09/29/2018 10:22:51 PM Mansoor Baltazar MD electronically signed on 09/29/2018 10:23:46 PM with status of Final MRI OF THE BRAIN WITHOUT CONTRAST 09/30/2018 9:06 am TECHNIQUE: Multiplanar multisequence MRI of the brain was performed without the administration of intravenous contrast. COMPARISON: CT brain 09/28/2018 HISTORY: ORDERING SYSTEM PROVIDED HISTORY: LUE weakness Bilateral upper extremity and lower extremity weakness. Headaches. Symptoms for 3 days. Initial presentation. FINDINGS: INTRACRANIAL STRUCTURES/VENTRICLES: Patient motion limits evaluation. There are no areas of restricted diffusion identified to suggest an acute infarct. There is no acute intracranial hemorrhage. No mass effect or midline shift is present. There is no ventriculomegaly or abnormal extra-axial fluid collection present. ORBITS: Limited evaluation of the orbits is unremarkable. SINUSES: The paranasal sinuses and mastoid air cells are clear. BONES/SOFT TISSUES: Bone marrow signal intensity is normal. MR/MR head/brain wo con IMPRESSION: Limited exam due to patient motion without acute intracranial process identified. D/ / Zion Crocker MD / Zion Crocker MD Interpreting Provider: Zion Crocker MD Consult Discharge Plan - Plan Referrals: NONE,PCP [Primary Care Provider] -
[2018-10-01] MEDS: *HR* Heparin 5,000 UNIT/ML VIAL SQ SCH (05:02)
[2018-10-01] MEDS: Ketorolac 15 MG/ML VIAL IVP PRN ×2 (05:05→10:27)
--- NOTE | 2018-10-01 07:46 | Discharge Summary ---
- NOTES TO OUTPATIENT PROVIDER Notes to Outpatient Provider: Reading physician of carotid duplex recommended repeat study in 6 month due to "atypical flow". Started patient on aspirin, going home with home health Orders not resulted at time of discharge: Pending orders 09/28/18 16:32 EKG [ECG 12 lead ECG] [ECG] Stat Date of Encounter: 10/01/18 Time of Encounter: 07:44 - Discharge Diagnosis (1) Weakness Priority: Primary Status: Resolved (2) Diplopia Priority: Primary Status: Resolved (3) Hypertension Priority: Secondary Status: Chronic Qualifiers: Hypertension type: essential hypertension Qualified Code(s): I10 - Essential (primary) hypertension (4) Headache Priority: Secondary Status: Chronic Qualifiers: Headache type: unspecified Headache chronicity pattern: chronic headache Intractability: not intractable Qualified Code(s): R51 - Headache (5) Unsteady gait Priority: Primary Status: Acute (6) Acute renal failure Priority: Primary Status: Resolved Qualifiers: Acute renal failure type: unspecified Qualified Code(s): N17.9 - Acute kidney failure, unspecified Hospital course: Ms. Shen is a 63 year old female with history of obesity, anxiety, depression presented with weakness of the upper extremities, unsteadiness on her feet, and blurry vision. She also had a mild headache that is chronic for her. She was noted to have an JANIA on admission. Patient underwent a head CT and cervical spine CT which were negative. She had an echo and carotid that were essentially normal however the reading physician of her carotid duplex did recommend a follow-up exam in 6 months to "atypical flow." MRI of the brain was negative for any acute infarct. Neurology evaluated the patient who did not feel that ultimately this was related to an ischemic event. Patient's symptoms have resolved other than mild headache that was gradually improving throughout her stay. Patient was dilated by PT and OT who recommended she continue with therapy through home health services. Patient will be discharged home in stable condition. Aspirin will be added to her medications. Discharge discussed with: patient - Time Spent with Patient Total time spent providing and/or coordinating discharge services: - Discharge Medications Prescriptions: Aspirin Enteric Coated [Aspirin EC] 81 mg PO DAILY #30 tablet. Home Medications: ALPRAZolam [Xanax 0.5 MG Tablet] 0.5 mg PO BID PRN 09/29/18 [History] Acetaminophen [Tylenol] 1,000 mg PO Q6HR 09/29/18 [History] Albuterol Sulfate [Ventolin Hfa] 2 puff IH Q6H PRN 09/29/18 [History] Amitriptyline [Elavil] 50 mg PO HS 09/29/18 [History] Duloxetine HCl [Cymbalta] 60 mg PO DAILY 09/29/18 [History] Gabapentin [Neurontin] 800 mg PO TID 09/29/18 [History] Ibuprofen [Ibu] 800 mg PO TID PRN 09/29/18 [History] Loperamide [Imodium] 4 mg PO AD PRN 09/29/18 [History] Ondansetron HCl [Zofran] 4 mg PO TID PRN 09/29/18 [History] Tizanidine HCl 4 mg PO QID PRN 09/29/18 [History] Aspirin Enteric Coated [Aspirin EC] 81 mg PO DAILY #30 tablet. 10/01/18 [Rx] Allergies/Adverse Reactions: Allergy/AdvReac Type Severity Reaction Status Date / Time adhesive tape Allergy Rash Verified 09/28/18 16:57 ciprofloxacin [From Cipro] Allergy Hives Verified 09/28/18 16:57 levofloxacin [From Levaquin] Allergy Hives Verified 09/28/18 16:57 dial soap Allergy Rash Uncoded 09/28/18 16:57 IVP dye Allergy See Uncoded 09/28/18 16:57 Comments Date of admission: 09/30/18 17:19 Primary care physician: PCP NONE Consults: 09/28/18 20:00 Consult to Neurology [CONS] Routine Consulting Provider: [facility] Reason for Consult: LUE weakness/Diplopia Call Completed: No 09/29/18 00:18 Consult to Physical Therapy [CONS] Routine Comment: Evaluate, develop and implement POC Reason for Consult: Unsteady gait after being in bed for approximately 3 days straight. Suspect deconditioning Does patient have active BEDREST order?: Yes Is patient medically & hemodynamically stable?: Yes Patient assessed for mobility or mobilized this visit?: No 09/29/18 14:33 Consult to Occupational Therapy [CONS] Routine Comment: Evaluate, develop and implement POC Reason for Consult: unsteadiness Does patient have active BEDREST order?: No Is patient medically & hemodynamically stable?: Yes 09/30/18 07:55 Consult to Photoengraving Sketch Maker [CONS] Routine Reason for SW Consult: Possible need for o2 Discharging clinician: Jace Almodovar Anticipated date of discharge: 10/01/18 - Constitutional Vitals: Temp Pulse Resp BP Pulse Ox 97.7 F 94 16 139/85 93 10/01/18 04:00 10/01/18 07:19 10/01/18 04:00 10/01/18 07:19 10/01/18 07:19 General appearance: Present: A&O X 3, pleasant, no acute distress Exam: . - Head Head exam: Present: atraumatic, normal inspection, normocephalic - Respiratory Respiratory exam: Present: CTAB. Absent: rales, rhonchi, wheezes - Cardiovascular Cardiovascular exam: Present: RRR. Absent: gallop, rubs, systolic murmur - GI/Abdominal GI/Abdominal exam: Present: normal bowel sounds, soft. Absent: distended, tenderness - Extremities Exam Extremities exam: Present: pedal edema (trace), warm. Absent: tenderness - Neurological Exam Neurological exam: Present: alert, oriented X3, no focal deficits - Patient Status Disposition: Home Health Service Condition: Good Functional capacity at discharge: independent ambulation Overall status at discharge: patient is progressing back to baseline - Discharge Instructions Follow Up With: Brooke Larose MD [Partnered Physician] - (6 month appt has been requested) NONE,PCP [Primary Care Provider] - (1 week) Additional Instructions: Please establish with a primary care and follow-up in one week. Please follow-up with the neurologist as scheduled. Please resume home medications. Please start aspirin. Please participate in physical therapy with home health. Please return for any new or worsening symptoms. - Diet and Activity Activity: increase activity as tolerated Diet: advance to your usual diet
--- NOTE | 2018-10-01 07:54 | Physician Discharge Referral ---
Home Health/Hosp Referral Info Transfer to: Home Health Provider in Charge Post Discharge: PCP - Diagnosis (1) Weakness Priority: Primary Status: Resolved (2) Diplopia Priority: Primary Status: Resolved (3) Hypertension Priority: Secondary Status: Chronic (4) Headache Priority: Secondary Status: Chronic (5) Unsteady gait Priority: Primary Status: Acute (6) Acute renal failure Priority: Secondary Status: Resolved - Respiratory Orders None Smoking Cessation: Smoking cessation has been advised. For more information, call the [place] Tobacco Quit Line at 8-837-[facility]-NOW. - Diet/Nutrition Diet/Nutrition Orders: Regular - Activity Activity Orders: Up ad marielle (with assist) - Services Needed Following services are medically necessary services: Nursing, Home Health Aide, Physical Therapy, Occupational Therapy - Transfer Medications Prescriptions: Aspirin Enteric Coated [Aspirin EC] 81 mg PO DAILY #30 tablet. Home Medications: ALPRAZolam [Xanax 0.5 MG Tablet] 0.5 mg PO BID PRN 09/29/18 [History] Acetaminophen [Tylenol] 1,000 mg PO Q6HR 09/29/18 [History] Albuterol Sulfate [Ventolin Hfa] 2 puff IH Q6H PRN 09/29/18 [History] Amitriptyline [Elavil] 50 mg PO HS 09/29/18 [History] Duloxetine HCl [Cymbalta] 60 mg PO DAILY 09/29/18 [History] Gabapentin [Neurontin] 800 mg PO TID 09/29/18 [History] Ibuprofen [Ibu] 800 mg PO TID PRN 09/29/18 [History] Loperamide [Imodium] 4 mg PO AD PRN 09/29/18 [History] Ondansetron HCl [Zofran] 4 mg PO TID PRN 09/29/18 [History] Tizanidine HCl 4 mg PO QID PRN 09/29/18 [History] Aspirin Enteric Coated [Aspirin EC] 81 mg PO DAILY #30 tablet. 10/01/18 [Rx] Allergies/Adverse Reactions: Allergy/AdvReac Type Severity Reaction Status Date / Time adhesive tape Allergy Rash Verified 09/28/18 16:57 ciprofloxacin [From Cipro] Allergy Hives Verified 09/28/18 16:57 levofloxacin [From Levaquin] Allergy Hives Verified 09/28/18 16:57 dial soap Allergy Rash Uncoded 09/28/18 16:57 IVP dye Allergy See Uncoded 09/28/18 16:57 Comments Certification: Further, I certify that my clinical findings support that this patient is homebound (i.e. absences from home require considerable and taxing effort and are for medical reasons or mosque services or infrequently or short duration when for other reasons) because: Homebound Reason: Patient requires assistance of a person or device to safely leave home, Leaving home requires considerable and taxing effort due to condition Attestation: My signature below is to certify that this patient is under my care and that I, or nurse practitioner, or a physician's gallery assistant working with me, has a [id number] encounter with this patient.
[2018-10-01] MEDS: Aspirin Enteric Coated 81 MG Tablet PO SCH (10:27)
[2018-10-01] MEDS: Gabapentin 400 MG CAPSULE PO SCH (10:27)
[2018-10-01] MEDS: ALPRAZolam 0.5 MG TABLET PO PRN (10:34)
[2018-10-01 11:22] VITALS: BP 144/86
== END 2018-10-01 12:49 | disposition home health service (06) | DRG 123 ==
LOC: 2NENU 16:16 → EMEROOARM 16:16 → SUATTDRO 20:14 → 2NENU 21:03
PROVIDERS: ADMIT Internal Medicine; ATTEND Internal Medicine

== ENCOUNTER 2018-10-28 15:05 | Inpatient (IN) ==
[2018-10-28] MEDS ORDERED: Ipratropium/Albuterol Neb 3 ML IH ONE (15:15)
[2018-10-28] MEDS ORDERED: methylPREDNISolone 125 MG/2 ML VIAL IVP ONE (15:15)
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
[2018-10-28] MEDS ORDERED: Piperacillin/Tazobactam 3.375 GM in 0.9 % Sodium Chloride Mini Bag 100 ML IVPB ONE (16:10)
--- NOTE | 2018-10-28 16:16 | Emergency Department Note ---
Disposition Clinical Impression: SOB (shortness of breath), Acute exacerbation of chronic obstructive airways disease Bilateral pneumonia Qualifiers: Pneumonia type: due to unspecified organism Lung location: unspecified part of lung Qualified Code(s): J18.9 - Pneumonia, unspecified organism Disposition: Admitted As Inpatient Referrals: NONE,PCP [Primary Care Provider] - Forms: ED Satisfaction Letter SOB HPI - General Chief Complaint: ED Shortness of Breath/Dyspnea Stated Complaint: SOB Time Seen by Provider: 10/28/18 15:09 Source: patient, EMS Mode of arrival: EMS Limitations: no limitations - Related Data Home Medications Medication Instructions Recorded Confirmed ALPRAZolam [Xanax 0.5 MG Tablet] 0.5 mg PO BID PRN 09/29/18 09/29/18 Acetaminophen [Tylenol] 1,000 mg PO Q6HR 09/29/18 09/29/18 Albuterol Sulfate [Ventolin Hfa] 2 puff IH Q6H PRN 09/29/18 09/29/18 Amitriptyline [Elavil] 50 mg PO HS 09/29/18 09/29/18 Duloxetine HCl [Cymbalta] 60 mg PO DAILY 09/29/18 09/29/18 Gabapentin [Neurontin] 800 mg PO TID 09/29/18 09/29/18 Ibuprofen [Ibu] 800 mg PO TID PRN 09/29/18 09/29/18 Loperamide [Imodium] 4 mg PO AD PRN 09/29/18 09/29/18 Ondansetron HCl [Zofran] 4 mg PO TID PRN 09/29/18 09/29/18 Tizanidine HCl 4 mg PO QID PRN 09/29/18 09/29/18 Previous Rx's Medication Instructions Recorded Aspirin Enteric Coated [Aspirin EC] 81 mg PO DAILY #30 tablet. 10/01/18 Allergies Allergy/AdvReac Type Severity Reaction Status Date / Time adhesive tape Allergy Rash Verified 09/28/18 16:57 ciprofloxacin [From Cipro] Allergy Hives Verified 09/28/18 16:57 levofloxacin [From Levaquin] Allergy Hives Verified 09/28/18 16:57 dial soap Allergy Rash Uncoded 09/28/18 16:57 IVP dye Allergy See Uncoded 09/28/18 16:57 Comments Constitutional: Reports: weakness. Denies: fever, chills Eyes: Denies: vision change Cardiovascular: Reports: chest pain, dyspnea on exertion. Denies: palpitations, orthopnea, edema, syncope Respiratory: Reports: cough, dyspnea, wheezes. Denies: hemoptysis, stridor Gastrointestinal: Denies: abdominal pain, nausea, vomiting, diarrhea Genitourinary: Denies: dysuria, hematuria Musculoskeletal: Denies: back pain, neck pain Integumentary: Denies: rash Neurological: Reports: headache, weakness. Denies: numbness, paresthesias, confusion Endocrine: Reports: fatigue Past Medical History - Past Medical History Medical history: Reports: COPD, hypertension Surgical history: Reports: appendectomy, cholecystectomy Psychiatric history: Reports: no psych history - Social History Smoking Status: Current every day smoker Smokeless Tobacco Status: No Alcohol use: Reports: rarely Drug use: Reports: none Physical Exam - General Limitations: no limitations General appearance: alert, in no apparent distress Course Vital Signs Temperature 99.1 F 10/28/18 15:15 Pulse Rate 112 10/28/18 15:15 Respiratory Rate 21 10/28/18 15:15 Blood Pressure 118/84 10/28/18 15:15 O2 Sat by Pulse Oximetry 94 10/28/18 15:15 Temperature 99.1 F 10/28/18 16:04 Pulse Rate 109 10/28/18 16:04 Respiratory Rate 14 10/28/18 16:04 Blood Pressure 138/90 10/28/18 16:04 O2 Sat by Pulse Oximetry 97 10/28/18 16:17 Oxygen Delivery Oxygen Delivery Nasal Cannula Shortness of Breath/Dyspnea - Lab Data Result diagrams: 10/28/18 15:54 Lab Results 10/28/18 10/28/18 10/28/18 Range/Units 15:54 15:54 15:54 WBC 9.0 (4.3-11.1) K/mcL RBC 4.66 (3.82-4.97) M/mcL Hgb 13.1 (11.5-15.4) g/dL Hct 43.5 (35.3-44.9) % MCV 93.3 (83.0-100.0) fL MCH 28.1 (28.0-33.3) pg MCHC 30.1 L (31.6-35.5) g/dL RDW 15.9 H (11.5-14.5) % Plt Count 261 (140-400) K/mcL MPV 10.4 (9.4-12.4) fL Immature Gran % 0.3 (0-4) % Seg Neutrophils % 63.2 % Lymphocytes % 20.3 % Monocytes % 12.7 % Eosinophils % 3.1 % Basophils % 0.4 % Neutrophils # 5.7 (1.6-8.9) K/mcL Lymphocytes # 1.8 (0.6-4.6) K/mcL Monocytes # 1.1 (0.0-1.3) K/mcL Eosinophils # 0.3 (0.0-0.6) K/mcL Basophils # 0.0 (0.0-0.2) K/mcL Lactic Acid 1.0 (0.5-2.2) mmol/L Troponin I < 0.03 (< 0.04) ng/mL Critical Care Time Critical Care Time: Yes Total Critical Care Time: 35 Attestation: Critical care time of 35 minutes spent in medical management a COPD exacerbation, hypoxia, shortness of breath and bilateral pneumonia. Attestation Statement - Attestation Attestation: I examined this patient and my medical decision-making was reviewed with the Resident Physician. I agree with the documented findings, disposition and treatment plan as described except to the extent set forth below. 63-year-old female presented to the emergency room for 2-3 days of worsening shortness of breath and coughing. Patient was concerned she was developing pneumonia. She just finished a round of Zithromax and Bactrim. States that she was on the Bactrim for a recent urinary tract infection. She finished that medication a few days ago. She also been on Zithromax for a coughBy her PCP. She does have a history of COPD. She also has a history of pulmonary hypertension. On x-ray today and concerns for possible bilateral pneumonia. She is extremely tight and wheezy on exam. We have ordered her more DuoNeb treatments. She does not wear home oxygen. She is currently 96% on 5 L. Patient will need to be admitted for treatment for pneumonia as well as COPD exacerbation. She is received IV steroids here. DuoNeb treatments here and I have ordered IV Zosyn and IV vancomycin. We have at ordered blood cultures as well. Lab work is pending at this time. EKG did not show any signs of ischemia.
[2018-10-28 16:18] LABS: Basophils % 0.4 %; Eosinophils # 0.3 K/mcL (0.0-0.6); Eosinophils % 3.1 %; Hematocrit 43.5 % (35.3-44.9); Hemoglobin 13.1 g/dL (11.5-15.4); Immature Granulocytes % 0.3 % (0-4); Lymphocytes # 1.8 K/mcL (0.6-4.6); Lymphocytes % 20.3 %; Mean Corpuscular HGB Conc 30.1 g/dL (31.6-35.5); Mean Corpuscular Hemoglobin 28.1 pg (28.0-33.3); Mean Corpuscular Volume 93.3 fL (83.0-100.0); Mean Platelet Volume 10.4 fL (9.4-12.4); Monocytes # 1.1 K/mcL (0.0-1.3); Monocytes % 12.7 %; Neutrophils # 5.7 K/mcL (1.6-8.9); Platelet Count 261 K/mcL (140-400); Red Blood Count 4.66 M/mcL (3.82-4.97); Red Cell Distribution Width 15.9 % (11.5-14.5); Segmented Neutrophils % 63.2 %
[2018-10-28 16:38] LABS: Troponin I < 0.03 ng/mL (< 0.04)
[2018-10-28 16:39] LABS: BUN/Creatinine Ratio 25 (6-26); Blood Urea Nitrogen 16 mg/dL (8-23); Calcium 8.6 mg/dL (8.6-10.3); Carbon Dioxide 31 mEq/L (23-29); Chloride 102 mEq/L (98-107); Glucose 130 mg/dL (70-105); Osmolality,Calculated 289 (280-300); Potassium 4.1 mEq/L (3.5-5.1); Sodium 138 mEq/L (136-145); eGFR For Non-African Americans > 60 (> 60)
[2018-10-28] MEDS ORDERED: Naloxone 0.4 MG/ML INJ IVP PRN (19:49)
[2018-10-28] MEDS ORDERED: Acetaminophen 325 MG TABLET PO PRN (19:49)
[2018-10-28] MEDS ORDERED: Albuterol 2.5 MG/3 ML NEBULIZER IH PRN (19:52)
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
[2018-10-28] MEDS: Ipratropium/Albuterol Neb 3 ML IH SCH ×2 (20:20→23:29)
[2018-10-28] MEDS: Albuterol 2.5 MG/3 ML NEBULIZER IH SCH ×2 (20:22→23:21)
[2018-10-28 20:27] LABS: ABG Base Excess 2 mEq/L (-2 to 3); ABG HCO3 33 mEq/L (21-27); ABG Oxygen Saturation 94 % (95-98); ABG PCO2 78 mmHg (35-45); ABG PH 7.24 pH Units (7.32-7.45); ABG PO2 86 mmHg (85-104); ABG TCO2 36 mEq/L (20-26)
[2018-10-28] MEDS ORDERED: Furosemide 40 MG/4 ML VIAL IVP ONE (20:33)
[2018-10-28] MEDS: *HR* HYDROcodone/Acet 5/325 mg TABLET PO PRN (22:24)
[2018-10-28] MEDS: Azithromycin 500 MG in D5% in Water 250 ML IVPB SCH (22:24)
[2018-10-29] MEDS ORDERED: Piperacillin/Tazobactam 3.375 GM in 0.9 % Sodium Chloride Mini Bag 100 ML IVPB SCH
[2018-10-29] MEDS: Albuterol 2.5 MG/3 ML NEBULIZER IH SCH ×6 (00:11→10:45)
[2018-10-29] MEDS: MethylPREDNISolone 40 MG/ML VIAL IVP SCH ×4 (00:46→18:11)
[2018-10-29] MEDS: Ipratropium/Albuterol Neb 3 ML IH SCH ×6 (03:58→23:28)
[2018-10-29] MEDS ORDERED: OXYCODONE Oral CONC 10 MG/0.5 ML ORAL.SYG SL ONE (04:53)
[2018-10-29 05:07] LABS: Bilirubin,Urine Negative (Negative); Blood,Urine Negative (Negative); Clarity,Urine Cloudy (Clear); Color,Urine Yellow (Yellow); Glucose,Urine (UA) Normal (Normal); Ketones,Urine Negative (Negative); Leukocyte Esterase,Urine Negative (Negative); Nitrite,Urine Negative (Negative); PH,Urine 5.5 pH Units (5.0-8.0); Protein,Urine Negative (Neg-Trace); Specific Gravity,Urine 1.013 (1.010-1.025); Urobilinogen,Urine Normal (Normal)
[2018-10-29 05:09] LABS: Bacteria,Urine None Seen per hpf (None-Few); Hyaline Casts,Urine None Seen per lpf (None-Few); RBC,Urine 0-3 per hpf (0-3); Squamous Epithelial Cell,Urine Many per lpf (None-Few); WBC,Urine 0-3 per hpf (0-3)
[2018-10-29] MEDS: *HR* Enoxaparin 40 MG/0.4 ML SYRINGE SQ SCH (05:09)
[2018-10-29 05:40] LABS: ABG Base Excess 7 mEq/L (-2 to 3); ABG HCO3 36 mEq/L (21-27); ABG Oxygen Saturation 95 % (95-98); ABG PCO2 68 mmHg (35-45); ABG PH 7.34 pH Units (7.32-7.45); ABG PO2 87 mmHg (85-104); ABG TCO2 38 mEq/L (20-26)
[2018-10-29] MEDS ORDERED: Aminoglycoside Consult 1 EACH MC ONE (08:04)
--- NOTE | 2018-10-29 08:14 | Internal Med Progress Note ---
Hospitalist Progress Note - Encounter Date of Encounter: 10/29/18 Time of Encounter: 08:12 - Subjective Interval History: Patient seen and examined at bedside- arouses to verbal stimuli, oriented to name place- Denies any pain or discomfort- states breathing improved-discussed tx plan with the patient who verbalized understanding - Exam Vitals: Temp Pulse Resp BP Pulse Ox 98.6 F 99 16 163/96 96 10/29/18 07:52 10/29/18 07:52 10/29/18 08:01 10/29/18 07:52 10/29/18 08:01 Exam: Gen: Sleeping arouses to verbal stimuli , Oriented to time,place, morbidly obese. Chest: Diminished BS b/l, faint expiratory wheezes Heart: S1S2+ RRR No Murmurs Abd: Soft, NT, BS + Ext: slight edema, pulses are palpable, no tenderness Neuro: No focal neuro deficits Psych: Normal mood Skin: No rash - Assessment and Plan (1) Acute and chronic respiratory failure Current Visit: Yes Status: Acute Assessment and Plan: Presented with increasing SOB hx of COPD non oxygen dependent - requiring oxygen support-became lethargic and confused- ABG obtained show resp acidosis - Ph 7.24 pco2 78 Hco3 33 Placed Bipap will titrate to maintain Spo2 >90% Most likely secondary to excerbation of CHF and COPD- possible pneumonia 2/5/ improved today- cont to require BiPap support ABG pH 7.34 pco2 68 pO2 87 Hco3 36 o2 sat 95% cont with BiPaP and attempt to wean O2 most likely secondary to CHF COPD exacerbation (2) CHF exacerbation Current Visit: Yes Status: Acute Assessment and Plan: Echo completed 09/29/2018 Impressions: Technically challenging due to body habitus. LVEF 65%. Mild left ventricular diastolic dysfunction. Definity echo contrast was used. RV is not optimally visualized. Mild tricuspid regurgitation. Mild pulmonary hypertension by TR gradient. Image quality suboptimal to detect PFO with saline contrast. -most likely diastolic we will give one dose of IV lasix and monitor - re evaluate by day team - monitor I/O daily weights 2/5 had 2 liters out overnight monitor I/O daily weights (3) Acute exacerbation of chronic obstructive airways disease Current Visit: Yes Status: Acute Assessment and Plan: 1 Hx of COPD- non oxygen dependent require oxygen at this time - has had a cough- given zithromax as outpatient without improvment will cont with steroids duo nebs Azithromycin and rocephin RIP oxygen titrating to maintain spo2 > 90% Blood cultures sputum culture 2/5 lung sounds have improved- moving more air cont to require BiPAp cont and wean will cont with steroids Resp panel pending cont ATB azithromycin and rocephin sputum culture blood cultures pending (4) Hypertension Current Visit: No Status: Chronic Assessment and Plan: 1 cont with home meds once verified 2/5 BP elevated - will start metoprolol to control HR and BP will monitor will add norvasc if no improvement (5) DVT prophylaxis Current Visit: No Status: Acute Assessment and Plan: lovenox - Time Spent with Patient Total time spent is greater than 50% in coordination of care (as documented) at patient's floor/unit and/or counseling patient: Internal Medicine: Result - Labs CBC & Chem 7: 10/29/18 04:00 10/29/18 04:00 Labs: Short CBC 10/28/18 Range/Units 15:54 WBC 9.0 (4.3-11.1) K/mcL Hgb 13.1 (11.5-15.4) g/dL Hct 43.5 (35.3-44.9) % Plt Count 261 (140-400) K/mcL Neutrophils # 5.7 (1.6-8.9) K/mcL BMP 10/28/18 15:54 Sodium 138 Potassium 4.1 Chloride 102 Carbon Dioxide 31 H BUN 16 Creatinine 0.64 Glucose 130 H Calcium 8.6 Cardiac Enzymes 10/28/18 Range/Units 15:54 Troponin I < 0.03 (< 0.04) ng/mL Urine 10/29/18 Range/Units 04:55 Urine Color Yellow (Yellow) Urine Clarity Cloudy A (Clear) Urine pH 5.5 (5.0-8.0) pH Units Ur Specific [place] 1.013 (1.010-1.025) Urine Protein Negative (Neg-Trace) mg/dL Urine Glucose (UA) Normal (Normal) mg/dL - ABG Interpretation ABG results: ABG ABG pH 7.34 pH Units (7.32-7.45) 10/29/18 05:24 ABG pCO2 68 mmHg (35-45) H 10/29/18 05:24 ABG pO2 87 mmHg (85-104) 10/29/18 05:24 ABG O2 Saturation 95 % (95-98) 10/29/18 05:24 - Impressions Impressions Chest X-Ray 10/28/18 15:15 IMPRESSION: 1. Stable pulmonary artery hypertension and cardiomegaly. 2. Bilateral perihilar opacities and bronchial thickening which may represent developing pulmonary edema versus bronchitis/bronchiolitis. No lobar pneumonia. D/ / 10/28/2018 15:44:34 Enrike Colbert MD / Talisha Price Interpreting Provider: Enrike Colbert MD Consult Discharge Plan - Plan Referrals: NONE,PCP [Primary Care Provider] - (1) Acute and chronic respiratory failure Qualifiers: Respiratory failure complication: hypoxia and hypercapnia Qualified Code(s): J96.21 - Acute and chronic respiratory failure with hypoxia; J96.22 - Acute and chronic respiratory failure with hypercapnia (2) CHF exacerbation Qualifiers: Heart failure type: diastolic Qualified Code(s): I50.33 - Acute on chronic diastolic (congestive) heart failure (4) Hypertension Qualifiers: Hypertension type: essential hypertension Qualified Code(s): I10 - Essential (primary) hypertension
[2018-10-29] MEDS: Aspirin Enteric Coated 81 MG Tablet PO SCH (10:01)
[2018-10-29] MEDS: *HR* HYDROcodone/Acet 5/325 mg TABLET PO PRN ×2 (10:01→18:10)
[2018-10-29] MEDS: cefTRIAXone 1,000 MG in Water for inj. (sterile) 20 ML 10 ML IVP SCH (10:02)
[2018-10-29 10:35] LABS: Basophils % 0.2 %; Hematocrit 43.2 % (35.3-44.9); Hemoglobin 13.2 g/dL (11.5-15.4); Immature Granulocytes % 0.3 % (0-4); Lymphocytes # 0.9 K/mcL (0.6-4.6); Lymphocytes % 14.8 %; Mean Corpuscular HGB Conc 30.6 g/dL (31.6-35.5); Mean Corpuscular Hemoglobin 27.8 pg (28.0-33.3); Mean Corpuscular Volume 90.9 fL (83.0-100.0); Mean Platelet Volume 10.6 fL (9.4-12.4); Monocytes # 0.1 K/mcL (0.0-1.3); Neutrophils # 5.3 K/mcL (1.6-8.9); Nucleated Red Blood Cells 0.6 /100 WBC (0); Platelet Count 243 K/mcL (140-400); Red Blood Count 4.75 M/mcL (3.82-4.97); Red Cell Distribution Width 15.3 % (11.5-14.5); Segmented Neutrophils % 82.7 %
[2018-10-29 10:54] LABS: BUN/Creatinine Ratio 33 (6-26); Blood Urea Nitrogen 16 mg/dL (8-23); Calcium 9.4 mg/dL (8.6-10.3); Carbon Dioxide 35 mEq/L (23-29); Chloride 98 mEq/L (98-107); Glucose 141 mg/dL (70-105); Magnesium 1.8 mg/dL (1.6-2.6); Osmolality,Calculated 288 (280-300); Potassium 4.3 mEq/L (3.5-5.1); Sodium 137 mEq/L (136-145); eGFR For Non-African Americans > 60 (> 60)
[2018-10-29] MEDS: *HR* OxyCODONE/APAP 5/325 TABLET PO PRN ×2 (12:52→20:53)
[2018-10-29] MEDS: tiZANidine 4 MG TABLET PO PRN ×2 (14:45→21:58)
[2018-10-29 16:59] LABS: Adenovirus Not Detected (Not Detect); Bordetella Pertussis Not Detected (Not Detect); Chlamydophila pneumoniae Not Detected (Not Detect); Coronavirus 229E Not Detected (Not Detect); Coronavirus HKU1 Not Detected (Not Detect); Coronavirus NL63 Not Detected (Not Detect); Coronavirus OC43 Not Detected (Not Detect); Human Metapneumovirus Not Detected (Not Detect); Human Rhinovirus/Enterovirus Not Detected (Not Detect); Influenza A Subtype 2009 H1 Not Detected (Not Detect); Influenza A Untypeable Not Detected (Not Detect); Influenza B Not Detected (Not Detect); Mycoplasma pneumoniae Not Detected (Not Detect); Parainfluenza Virus 1 Not Detected (Not Detect); Parainfluenza Virus 2 Not Detected (Not Detect); Parainfluenza Virus 3 Not Detected (Not Detect); Parainfluenza Virus 4 Not Detected (Not Detect); Respiratory Syncytial Virus Not Detected (Not Detect)
[2018-10-29] MEDS: Furosemide 20 MG/2 ML VIAL IVP SCH (18:11)
[2018-10-29] MEDS: ALPRAZolam 0.5 MG TABLET PO PRN (20:25)
[2018-10-29] MEDS: Azithromycin 500 MG in D5% in Water 250 ML IVPB SCH (20:26)
[2018-10-29] MEDS: Nystatin Cream 15 GM TUBE TP ONE (22:00)
--- NOTE | 2018-10-29 23:56 | Electrocardiograph Report ---
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
[2018-10-30] MEDS: MethylPREDNISolone 40 MG/ML VIAL IVP SCH ×4 (00:21→18:11)
[2018-10-30] MEDS: *HR* HYDROcodone/Acet 5/325 mg TABLET PO PRN ×3 (01:38→22:47)
[2018-10-30] MEDS: Ipratropium/Albuterol Neb 3 ML IH SCH ×5 (04:03→19:36)
[2018-10-30 04:42] LABS: Hematocrit 39.3 % (35.3-44.9); Hemoglobin 12.2 g/dL (11.5-15.4); Immature Granulocytes % 0.2 % (0-4); Lymphocytes # 0.9 K/mcL (0.6-4.6); Lymphocytes % 10.3 %; Mean Corpuscular Hemoglobin 27.6 pg (28.0-33.3); Mean Corpuscular Volume 88.9 fL (83.0-100.0); Mean Platelet Volume 10.5 fL (9.4-12.4); Monocytes # 0.2 K/mcL (0.0-1.3); Monocytes % 2.8 %; Neutrophils # 7.2 K/mcL (1.6-8.9); Platelet Count 239 K/mcL (140-400); Red Blood Count 4.42 M/mcL (3.82-4.97); Red Cell Distribution Width 15.4 % (11.5-14.5); Segmented Neutrophils % 86.7 %
[2018-10-30 04:54] LABS: BUN/Creatinine Ratio 52 (6-26); Blood Urea Nitrogen 28 mg/dL (8-23); Calcium 9.2 mg/dL (8.6-10.3); Carbon Dioxide 34 mEq/L (23-29); Chloride 99 mEq/L (98-107); Glucose 143 mg/dL (70-105); Osmolality,Calculated 292 (280-300); Potassium 4.4 mEq/L (3.5-5.1); Sodium 137 mEq/L (136-145); eGFR For Non-African Americans > 60 (> 60)
[2018-10-30] MEDS: *HR* Enoxaparin 40 MG/0.4 ML SYRINGE SQ SCH ×2 (05:46→22:35)
[2018-10-30] MEDS: cefTRIAXone 1,000 MG in Water for inj. (sterile) 20 ML 10 ML IVP SCH (08:04)
[2018-10-30] MEDS: Furosemide 20 MG/2 ML VIAL IVP SCH ×2 (08:05→18:10)
[2018-10-30] MEDS: *HR* OxyCODONE/APAP 5/325 TABLET PO PRN ×2 (08:05→18:27)
[2018-10-30] MEDS: Aspirin Enteric Coated 81 MG Tablet PO SCH (08:05)
[2018-10-30] MEDS: tiZANidine 4 MG TABLET PO PRN ×3 (08:15→18:27)
[2018-10-30] MEDS: ALPRAZolam 0.5 MG TABLET PO PRN ×2 (15:21→22:47)
--- NOTE | 2018-10-30 15:58 | Internal Med Progress Note ---
Hospitalist Progress Note - Encounter Date of Encounter: 10/30/18 Time of Encounter: 15:55 - Subjective Interval History: I have seen and evaluated the patient at bedside. Patient reports that her breathing is improving but still feels slightly short of breath. denies chest pain, nausea or vomiting. - Exam Vitals: Temp Pulse Resp BP Pulse Ox 98.6 F 59 17 121/62 98 10/30/18 10:58 10/30/18 10:58 10/30/18 10:58 10/30/18 10:58 10/30/18 10:58 Exam: Vitals: Reviewed General: Morbidly obese, Alert and oriented x4. In mild distress due to shortness of breath Skin: Normal color, no rash, no lesions. HEENT: EOM, pupils equal, round and reactive. Cardiovascular: RRR, normal S1 & S2, no rubs, murmurs or gallops. No JVD. Pulse regular. Lungs: CTA b/, no wheezes or crackles. Abdomen: Obese, Soft, non-tender, no rigidity. Extremities: No deformity, 1+ edema in the lower extr b/l. Neurological:Normal cognition. Rest of the physical exam is non contributory - Assessment and Plan (1) Acute exacerbation of chronic obstructive airways disease Current Visit: Yes Status: Acute Assessment and Plan: Mild expiratory wheezing to auscultation bilaterally. Plan Continue bronchodilators as scheduled. Decrease Solu-Medrol to 40mg/IV Q12hr Continue empiric antibiotics coverage with azithromycin 500mg/IV daily discontinue ceftriaxone Sputum culture and gram stain O2 by nasal cannula, titrate for O2Sat >92% Incentive spirometry Nocturnal BiPAP. (2) Hypertension Current Visit: No Status: Chronic Assessment and Plan: Blood pressure is controlled. Continue metoprolol 25 mg by mouth twice a day and furosemide. (3) Acute and chronic respiratory failure Current Visit: Yes Status: Acute Assessment and Plan: Plan of care as per problem #1. (4) CHF exacerbation Current Visit: Yes Status: Acute Assessment and Plan: Balance -900 mls. Continue fluid restrictive strategies to 1.5 L a day. Daily weight. Increase furosemide to 40 twice a day. Continue metoprolol. (5) Morbidly obese Current Visit: Yes Status: Acute DVT Prophylaxis: Patient is on enoxaparin 40 mg subcutaneous twice a day per BMI. - Summary of Assessment and Plan Summary of Assessment and Plan: Patient to remain in the hospital due to COPD and CHF exacerbation. Improving potential discharge tomorrow - Time Spent with Patient Total time spent is greater than 50% in coordination of care (as documented) at patient's floor/unit and/or counseling patient: Greater than 35 minutes (40) Plan of Care Discussed with: patient (and the nurse.) Internal Medicine: Result - Labs CBC & Chem 7: 10/30/18 04:11 10/30/18 04:11 Labs: Short CBC 10/30/18 Range/Units 04:11 WBC 8.3 (4.3-11.1) K/mcL Hgb 12.2 (11.5-15.4) g/dL Hct 39.3 (35.3-44.9) % Plt Count 239 (140-400) K/mcL Neutrophils # 7.2 (1.6-8.9) K/mcL BMP 10/30/18 04:11 Sodium 137 Potassium 4.4 Chloride 99 Carbon Dioxide 34 H BUN 28 H Creatinine 0.54 L Glucose 143 H Calcium 9.2 - ABG Interpretation ABG results: ABG ABG pH 7.34 pH Units (7.32-7.45) 10/29/18 05:24 ABG pCO2 68 mmHg (35-45) H 10/29/18 05:24 ABG pO2 87 mmHg (85-104) 10/29/18 05:24 ABG O2 Saturation 95 % (95-98) 10/29/18 05:24 Consult Discharge Plan - Plan Referrals: NONE,PCP [Primary Care Provider] - (2) Hypertension Qualifiers: Hypertension type: essential hypertension Qualified Code(s): I10 - Essential (primary) hypertension (3) Acute and chronic respiratory failure Qualifiers: Respiratory failure complication: hypoxia and hypercapnia Qualified Code(s): J96.21 - Acute and chronic respiratory failure with hypoxia; J96.22 - Acute and chronic respiratory failure with hypercapnia (4) CHF exacerbation Qualifiers: Heart failure type: diastolic Qualified Code(s): I50.33 - Acute on chronic diastolic (congestive) heart failure
[2018-10-30] MEDS: Nystatin Cream 15 GM TUBE TP ONE (18:23)
[2018-10-30] MEDS: Azithromycin 500 MG in D5% in Water 250 ML IVPB SCH (22:34)
[2018-10-30] MEDS ORDERED: Gabapentin 400 MG CAPSULE PO ONE (22:54)
[2018-10-31] MEDS: Ipratropium/Albuterol Neb 3 ML IH SCH ×5 (00:02→15:35)
[2018-10-31 04:22] LABS: Hematocrit 39.8 % (35.3-44.9); Hemoglobin 12.6 g/dL (11.5-15.4); Immature Granulocytes % 0.4 % (0-4); Lymphocytes # 1.1 K/mcL (0.6-4.6); Mean Corpuscular HGB Conc 31.7 g/dL (31.6-35.5); Mean Corpuscular Hemoglobin 27.8 pg (28.0-33.3); Mean Corpuscular Volume 87.7 fL (83.0-100.0); Mean Platelet Volume 10.3 fL (9.4-12.4); Monocytes # 0.7 K/mcL (0.0-1.3); Monocytes % 7.1 %; Neutrophils # 8.3 K/mcL (1.6-8.9); Platelet Count 269 K/mcL (140-400); Red Blood Count 4.54 M/mcL (3.82-4.97); Segmented Neutrophils % 81.5 %
[2018-10-31] MEDS: tiZANidine 4 MG TABLET PO PRN ×2 (04:53→10:53)
[2018-10-31] MEDS: MethylPREDNISolone 40 MG/ML VIAL IVP SCH (04:53)
[2018-10-31] MEDS: *HR* HYDROcodone/Acet 5/325 mg TABLET PO PRN (04:53)
[2018-10-31 05:01] LABS: BUN/Creatinine Ratio 76 (6-26); Blood Urea Nitrogen 29 mg/dL (8-23); Calcium 6.7 mg/dL (8.6-10.3); Carbon Dioxide 28 mEq/L (23-29); Chloride 109 mEq/L (98-107); Glucose 86 mg/dL (70-105); Magnesium 1.5 mg/dL (1.6-2.6); Osmolality,Calculated 297 (280-300); Phosphorous 2.9 mg/dL (2.7-4.5); Potassium 3.3 mEq/L (3.5-5.1); Sodium 141 mEq/L (136-145); eGFR For Non-African Americans > 60 (> 60)
[2018-10-31] MEDS: Aspirin Enteric Coated 81 MG Tablet PO SCH (08:27)
[2018-10-31] MEDS: *HR* Enoxaparin 40 MG/0.4 ML SYRINGE SQ SCH (08:27)
[2018-10-31] MEDS: Furosemide 20 MG/2 ML VIAL IVP SCH (08:27)
[2018-10-31] MEDS: *HR* OxyCODONE/APAP 5/325 TABLET PO PRN (08:27)
--- NOTE | 2018-10-31 09:10 | Discharge Summary ---
- NOTES TO OUTPATIENT PROVIDER Notes to Outpatient Provider: Follow-up with your primary care physician within a week of hospital discharge. Orders not resulted at time of discharge: Pending orders 10/28/18 17:34 Culture,Blood [BC] Stat 10/28/18 19:52 Culture,Sputum with Gram Stain [RM] Routine Date of Encounter: 10/31/18 Time of Encounter: 09:06 - Discharge Diagnosis (1) Acute exacerbation of chronic obstructive airways disease Priority: Primary Status: Resolved (2) Hypertension Priority: Secondary Status: Chronic Qualifiers: Hypertension type: essential hypertension Qualified Code(s): I10 - Essential (primary) hypertension (3) Acute and chronic respiratory failure Priority: Secondary Status: Resolved Qualifiers: Respiratory failure complication: hypoxia and hypercapnia Qualified Code(s): J96.21 - Acute and chronic respiratory failure with hypoxia; J96.22 - Acute and chronic respiratory failure with hypercapnia (4) CHF exacerbation Priority: Secondary Status: Resolved Qualifiers: Heart failure type: diastolic Qualified Code(s): I50.33 - Acute on chronic diastolic (congestive) heart failure (5) Morbidly obese Priority: Secondary Status: Acute Hospital course: Ms. Shen is a 63 year old female past medical history of COPD, hypertension and HFpEF. patient was brought to the ED due to 3 days history of shortness of breath plus productive cough. Patient admitted to the hospital due to copd and chf exacerbation. Managed with scheduled bronchodilators, antibiotics plus IV steroids and IV diuretics. Patient acute symptoms resolved and patient is clinically stable to be discharged. Patient is being discharged on azithromycin 500 mg by mouth daily to complete 7 days, plus a Medrol Dosepak. Recommended to follow-up with her primary care physician within a week of hospital discharge. - Time Spent with Patient Total time spent providing and/or coordinating discharge services: Greater than 30 minutes (45) - Discharge Medications Prescriptions: Azithromycin [Zithromax Tri-Cheo] 500 mg PO DAILY 5 Days #5 tablet Furosemide [Lasix] 40 mg PO DAILY 30 Days #30 tablet Home Medications: ALPRAZolam [Xanax 0.5 MG Tablet] 0.5 mg PO BID PRN 09/29/18 [History] Acetaminophen [Tylenol] 1,000 mg PO Q6HR PRN 09/29/18 [History] Albuterol Sulfate [Ventolin Hfa] 2 puff IH Q6H PRN 09/29/18 [History] Amitriptyline [Elavil] 50 mg PO HS 09/29/18 [History] Duloxetine HCl [Cymbalta] 60 mg PO DAILY 09/29/18 [History] Gabapentin [Neurontin] 800 mg PO TID 09/29/18 [History] Ibuprofen [Ibu] 800 mg PO TID PRN 09/29/18 [History] Loperamide [Imodium] 2 mg PO AD PRN 09/29/18 [History] Ondansetron HCl [Zofran] 4 mg PO TID PRN 09/29/18 [History] Tizanidine HCl 4 mg PO QID PRN 09/29/18 [History] Aspirin Enteric Coated [Aspirin EC] 81 mg PO DAILY #30 tablet. 10/01/18 [Rx] Oxycodone HCl/Acetaminophen [Percocet 5-325 mg Tablet] 1 tab PO TID PRN 10/28/18 [History] Azithromycin [Zithromax Tri-Cheo] 500 mg PO DAILY 5 Days #5 tablet 10/31/18 [Rx] Furosemide [Lasix] 40 mg PO DAILY 30 Days #30 tablet 10/31/18 [Rx] methylPREDNISolone [Solu-MEDROL] 40 mg IVP Q12HR vial 10/31/18 [Rx] Allergies/Adverse Reactions: Allergy/AdvReac Type Severity Reaction Status Date / Time adhesive tape Allergy Rash Verified 09/28/18 16:57 ciprofloxacin [From Cipro] Allergy Hives Verified 09/28/18 16:57 levofloxacin [From Levaquin] Allergy Hives Verified 09/28/18 16:57 Penicillins Allergy Rash Verified 10/29/18 10:40 dial soap Allergy Rash Uncoded 09/28/18 16:57 IVP dye Allergy See Uncoded 09/28/18 16:57 Comments Date of admission: 10/28/18 21:04 Primary care physician: PCP NONE Consults: 10/28/18 19:52 Consult to Nurse Navigator [CONS] Routine Comment: 10/29/18 07:55 Consult to Invasive Line Access Team [CONS] Routine Reason for Consult: limited access Line Type: EPIV Time Notified: 07:00 Call Completed: Yes 10/29/18 20:17 Consult to Physical Therapy [CONS] Routine Comment: Evaluate, develop and implement POC Reason for Consult: weakness Does patient have active BEDREST order?: No Is patient medically & hemodynamically stable?: Yes Patient assessed for mobility or mobilized this visit?: No 10/29/18 20:18 Consult to Occupational Therapy [CONS] Routine Comment: Evaluate, develop and implement POC Reason for Consult: weakness Does patient have active BEDREST order?: No Is patient medically & hemodynamically stable?: Yes Patient assessed for mobility or mobilized this visit?: No Consult to Taper/Finisher [CONS] Routine Reason for SW Consult: possible ECF placement - Constitutional Vitals: Temp Pulse Resp BP Pulse Ox 98.1 F 64 14 133/74 93 10/31/18 07:51 10/31/18 07:51 10/31/18 07:51 10/31/18 07:51 10/31/18 07:51 General appearance: Present: morbidly obese Exam: Vitals: Reviewed General: Morbidly obese, Alert and oriented x4. In no acute distress. Skin: Normal color, no rash, no lesions. HEENT: EOM, pupils equal, round and reactive. Cardiovascular: RRR, normal S1 & S2, no rubs, murmurs or gallops. Lungs: CTA b/, no wheezes or crackles. Abdomen: Obese, Soft, non-tender, no rigidity. Extremities: 1+ edema in the lower extr b/l. Neurological: Normal cognition. Rest of the physical exam is non contributory - Patient Status Disposition: Transfer SNF Condition: Good Functional capacity at discharge: uses cane/walker Overall status at discharge: patient is progressing back to baseline - Discharge Instructions Follow Up With: NONE,PCP [Primary Care Provider] - - Diet and Activity Activity: resume usual activities as tolerated, wear oxygen at all times Diet: low salt diet
--- NOTE | 2018-10-31 09:17 | Physician Discharge Referral ---
ExtendedCare Referral Info Transfer To: SNF - Diagnosis (1) Acute exacerbation of chronic obstructive airways disease Priority: Primary Status: Resolved (2) Hypertension Priority: Secondary Status: Chronic (3) Acute and chronic respiratory failure Priority: Secondary Status: Resolved (4) CHF exacerbation Priority: Secondary Status: Resolved (5) Morbidly obese Priority: Secondary Status: Acute Prognosis: Good Aware of Diagnosis: Patient Aware of Prognosis: Patient - Transfer Medications Prescriptions: Azithromycin [Zithromax Tri-Cheo] 500 mg PO DAILY 5 Days #5 tablet Furosemide [Lasix] 40 mg PO DAILY 30 Days #30 tablet Home Medications: ALPRAZolam [Xanax 0.5 MG Tablet] 0.5 mg PO BID PRN 09/29/18 [History] Acetaminophen [Tylenol] 1,000 mg PO Q6HR PRN 09/29/18 [History] Albuterol Sulfate [Ventolin Hfa] 2 puff IH Q6H PRN 09/29/18 [History] Amitriptyline [Elavil] 50 mg PO HS 09/29/18 [History] Duloxetine HCl [Cymbalta] 60 mg PO DAILY 09/29/18 [History] Gabapentin [Neurontin] 800 mg PO TID 09/29/18 [History] Ibuprofen [Ibu] 800 mg PO TID PRN 09/29/18 [History] Loperamide [Imodium] 2 mg PO AD PRN 09/29/18 [History] Ondansetron HCl [Zofran] 4 mg PO TID PRN 09/29/18 [History] Tizanidine HCl 4 mg PO QID PRN 09/29/18 [History] Aspirin Enteric Coated [Aspirin EC] 81 mg PO DAILY #30 tablet. 10/01/18 [Rx] Oxycodone HCl/Acetaminophen [Percocet 5-325 mg Tablet] 1 tab PO TID PRN 10/28/18 [History] Azithromycin [Zithromax Tri-Cheo] 500 mg PO DAILY 5 Days #5 tablet 10/31/18 [Rx] Furosemide [Lasix] 40 mg PO DAILY 30 Days #30 tablet 10/31/18 [Rx] methylPREDNISolone [Solu-MEDROL] 40 mg IVP Q12HR vial 10/31/18 [Rx] Allergies/Adverse Reactions: Allergy/AdvReac Type Severity Reaction Status Date / Time adhesive tape Allergy Rash Verified 09/28/18 16:57 ciprofloxacin [From Cipro] Allergy Hives Verified 09/28/18 16:57 levofloxacin [From Levaquin] Allergy Hives Verified 09/28/18 16:57 Penicillins Allergy Rash Verified 10/29/18 10:40 dial soap Allergy Rash Uncoded 09/28/18 16:57 IVP dye Allergy See Uncoded 09/28/18 16:57 Comments - Respiratory Orders Oxygen / L per min (2 LITTERS OF O2) Smoking Cessation: Smoking cessation has been advised. For more information, call the [place] [employer] Quit Line at 1-281-ONVA-NOW. - Advance Directives Code Status: Full Code - Mobility Orders Chair, Ambulate - Rehabiliation Orders Rehab Potential: Fair Rehab Orders: Evaluation for Physical Therapy, Evaluation for Occupational Therapy - Diet Orders Regular CERTIFICATION: I certify that the transfer of the above named patient to an Extended Care [facility] is necessary for the continuing treatment of the diagnosis listed. The above information is true and accurate reflection of patient's current condition. Confidential - Redisclosure prohibited without a patient's written consent.
[2018-10-31] MEDS: ALPRAZolam 0.5 MG TABLET PO PRN (10:52)
[2018-10-31 12:41] VITALS: BP 131/80
== END 2018-10-31 15:15 | DRG 291 ==
LOC: 2SOUTHHOLD 15:05 → EMEROOARM 15:05 → SUATTDRO 21:04 → 2SOUTHHOLD 22:08
PROVIDERS: ADMIT Student in an Organized Health Care Education/Training Program; ATTEND Internal Medicine